=== PATIENT | male | born 1960 | race Caucasian/White ===

== ENCOUNTER 2022-02-14 07:42 | Outpatient (REF) | payer OTHER, SELFPAY ==
[2022-02-14 11:46] LABS: Alanine Aminotransferase 17 U/L (0-40); Alkaline Phosphatase 73 U/L (39-117); Anion Gap 13 (12-20); Aspartate Amino Transferase 16 U/L (5-37); Bilirubin Total 0.7 mg/dL (0.0-1.0); Blood Urea Nitrogen 20 mg/dL (9-16); Calcium 9.6 mg/dL (8.4-10.2); Carbon Dioxide 25 mmol/L (22-29); Chloride 103 mmol/L (96-108); Cholesterol 156 mg/dL; Estimated Glomerular Filt Rate > 60; Glucose Fasting 94 mg/dL (60-99); HDL Cholesterol 49 mg/dL; LDL Cholesterol Calculated 93 mg/dl; Potassium 5.1 mmol/L (3.3-5.1); Sodium 136 mmol/L (135-145); Total Protein 6.9 g/dL (6.5-8.0); Triglycerides 73 mg/dL
[2022-02-14 12:10] LABS: Prostate Specific Antigen Scr 2.93 ng/mL (<0.05-4.0); TSH reflex Free T4 2.77 uIU/mL (0.32-4.0)
[2022-02-14 12:50] LABS: Appearance Urine CLEAR; Color Urine YELLOW; Glucose Urine UA NEG (NEG); Leukocyte Esterase Urine NEG (NEG); Nitrite Urine NEG (NEG); Specific Gravity - Urine 1.015 (1.005-1.025); Urine Blood NEG (NEG); Urine Ketones NEG (NEG); Urine Protein NEG (NEG-TRACE)
== END 2022-02-14 07:43 | disposition home or self-care (01) ==
LOC: HO.WFDLDS 07:42
PROVIDERS: Visit Provider Family Medicine
DX: Z00.00 Encounter for general adult medical examination without abnormal findings (principal); Z12.5 Encounter for screening for malignant neoplasm of prostate; I10 Essential (primary) hypertension
CPT/HCPCS: 36415; 80053; 80061; 81003; 82043; 84153; 84443

== ENCOUNTER 2023-02-17 08:34 | Outpatient (REF) | payer OTHER, SELFPAY ==
[2023-02-17 11:56] LABS: Alanine Aminotransferase 17 U/L (0-40); Alkaline Phosphatase 70 U/L (39-117); Anion Gap 13 (12-20); Aspartate Amino Transferase 16 U/L (5-37); Bilirubin Total 0.9 mg/dL (0.0-1.0); Blood Urea Nitrogen 16 mg/dL (9-16); Calcium 9.7 mg/dL (8.4-10.2); Carbon Dioxide 26 mmol/L (22-29); Chloride 105 mmol/L (96-108); Cholesterol 159 mg/dL; Estimated Glomerular Filt Rate > 60; Glucose Fasting 96 mg/dL (60-99); HDL Cholesterol 50 mg/dL; LDL Cholesterol Calculated 97 mg/dl; Potassium 4.4 mmol/L (3.3-5.1); Sodium 140 mmol/L (135-145); Total Protein 6.8 g/dL (6.5-8.0); Triglycerides 63 mg/dL
[2023-02-17 12:15] LABS: TSH reflex Free T4 1.95 uIU/mL (0.32-4.0)
== END 2023-02-17 08:35 | disposition home or self-care (01) ==
LOC: HO.WFDLDS 08:34
PROVIDERS: Visit Provider Family Medicine
DX: Z00.00 Encounter for general adult medical examination without abnormal findings (principal)
CPT/HCPCS: 36415; 80053; 80061; 84443

== ENCOUNTER 2023-02-24 10:22 | Outpatient (REF) | payer OTHER, SELFPAY ==
--- NOTE | ~2023-02-24 | XR_ITS ---
EXAMINATION: XR CHEST CLINICAL INFORMATION: Cough COMPARISON: None available. TECHNIQUE: 2 views of the chest were obtained. FINDINGS: The lung volumes are low. Cardiac silhouette appears slightly enlarged. There are median sternotomy wires. Hilar and mediastinal contours are unremarkable. There are increased markings at the left lung base. It is uncertain whether this is related to low lung volumes. Small infiltrate cannot be excluded. The lungs are otherwise clear. No pleural effusion or pneumothorax. No acute bone abnormality. XR/XR chest 2V IMPRESSION: Upper normal-size cardiac silhouette. Low lung volumes. Question atelectasis or small infiltrate at the left lung base.
== END 2023-02-24 10:23 | disposition home or self-care (01) ==
LOC: HO.XRAY 10:22
PROVIDERS: PCP Family Medicine; Visit Provider Family Medicine
DX: R05.9 Cough, unspecified (principal)
CPT/HCPCS: 71046

== ENCOUNTER 2023-05-21 07:48 | Outpatient (REF) | payer OTHER, SELFPAY ==
[2023-05-21 11:46] LABS: Appearance Urine Clear; Color Urine Yellow; Glucose Urine UA Negative (Negative); Leukocyte Esterase Urine Negative (Negative); Nitrite Urine Negative (Negative); PH 6.5 (5.0-9.0); Urine Blood Negative (Negative); Urine Ketones Negative (Negative); Urine Protein Negative (Neg-Trace)
[2023-05-21 12:33] LABS: Prostate Specific Antigen Scr 2.18 ng/mL (<0.05-4.0)
== END 2023-05-21 07:49 | disposition home or self-care (01) ==
LOC: HO.WFDLDS 07:48
PROVIDERS: Visit Provider Family Medicine
DX: Z00.00 Encounter for general adult medical examination without abnormal findings (principal); Z12.5 Encounter for screening for malignant neoplasm of prostate
CPT/HCPCS: 36415; 81003; 84153

== ENCOUNTER 2023-05-27 09:17 | Outpatient (AMB) | payer OTHER, SELFPAY ==
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
[2023-05-27 09:21] VITALS: BP 124/72; PULSE 70; O2SAT 98; BMI 33.4
== END 2023-05-27 09:52 | disposition home or self-care (01) ==
PROVIDERS: PCP Family Medicine; Visit Provider Family Medicine
DX: I10 Essential (primary) hypertension (principal); R05.9 Cough, unspecified; Z12.5 Encounter for screening for malignant neoplasm of prostate
CPT/HCPCS: 99214

== ENCOUNTER 2023-10-06 09:15 | Outpatient (AMB) | payer OTHER, SELFPAY ==
--- NOTE | 2023-10-06 09:18 | MHC.PC.OV ---
Vital Signs 10/06/23 09:19 Height 6 ft Weight 249 lb 8 oz BMI 33.8 BP 122/74 Blood Pressure Location Lt brachial Position Sitting Pulse 75 Pulse Source Pulse Oximeter Pulse Oximetry (%) 100 Oxygen Delivery Method Room Air Intake Visit Reasons: f/u hypertension, see comments Intake Note: Patient is here to follow up on hypertension. Allergies No Known Allergies Allergy (Verified 10/06/23 09:21) Tobacco use date assessed: 10/06/23 Dental Screening Dental Screen Date: 10/06/23 Did you have a dental visit in the last 12 months?: Yes Did you have a dental problem in the last 6 months where you did not have access to dental care?: No Was dental information given to patient?: Patient has dentist HPI f/u hypertension, see comments HPI Details 63 y/o male presents to f/u hypertension. Blood pressure today 122/74. He is on elrpqktiqu9ehzfkmrvir 10-20mg daily. Pt reports ongoing cough - he notes he has been taking flonase which has been helping quite a bit. [facility] Medical History High blood pressure Surgical History History of thoracic surgery Family History Father Diabetes Mother Stroke High blood pressure Social History Housing: House Patient Tobacco Use Status: Never used Tobacco e-Cigarette/Vaping Use: Never Used Second Hand Smoke Exposure: No service: No Current occupational status: retired Current occupational exposures/hazards: No Cognitive needs: No Hearing needs: No Vision needs: No Questionnaire PHQ-9 Over the last 2 weeks, how often have you been bothered by any of the following problems? 1. Little interest or pleasure in doing things: not at all 2. Feeling down, depressed, or hopeless: not at all 3. Trouble falling or staying asleep, or sleeping too much: not at all 4. Feeling tired or having little energy: not at all 5. Poor appetite or overeating: not at all 6. Feeling bad about yourself - or that you are a failure or have let yourself or your family down: not at all 7. Trouble concentrating on things, such as reading the newspaper or watching television: not at all 8. Moving or speaking so slowly that other people could have noticed. Or the opposite - being so fidgety or restless that you have been moving around a lot more than usual: not at all 9. Thoughts that you would be better off or of hurting yourself in some way: not at all Total score: 0 Source: Developed by Drs. John Paul Nix, Lisa Marr, Jeff Briceno and colleagues, with an educational krista from [employer]. Thrive Questionnaire Date Thrive assessed: 10/16/22 I am a: Patient What is your living situation today?: I have a steady place to live Within the past 12 months, did the food you bought not last and you didn't have the money to get more?: Never true Within the past 12 months, did you worry whether your food would run out before you got money to buy more?: Never true Do you have trouble paying for medicines?: No Do you have trouble getting transportation to medical appointments?: No Do you have trouble paying your heating and electricity bill?: No Do you have trouble taking care of your child, family member or friend?: No Do you have trouble with day-to-day activities such as bathing, preparing meals, shopping, managing finances, etc.?: No Are you currently unemployed and looking for a job?: No Are you interested in more education?: No THRIVE Score: 0 AUDIT C Alcohol Use Questionnaire (AUDIT-C) 1. How often do you have a drink containing alcohol?: Monthly or less 2. How many drinks containing alcohol do you have on a typical day when you are drinking?: 1 or 2 3. How often do you have six or more drinks on one occasion?: Never Total Score: 1 RONALD-7 AMB Questionnaire RONALD-7 Date RONALD - 7 assessed: 10/06/23 Feeling nervous, anxious, or on edge: 0 = Not at all Not being able to stop or control worryin = Not at all Worrying too much about different things: 0 = Not at all Trouble relaxin = Not at all Being so restless that it is hard to sit still: 0 = Not at all Becoming easily annoyed or irritable: 0 = Not at all Feeling afraid as if something awful might happen: 0 = Not at all Total RONALD-7 score (0-4 normal; 5-9 mild; 10-14 moderate; 15-21 severe): 0 Source: Developed by Drs. John Paul Nix, Lisa Marr, Jeff Briceno and colleagues, with an educational krista from [employer]. Review of Systems Const Denies chills, Denies fatigue, Denies fever(s), Denies headache(s) and Denies weakness ENT Denies dizziness and Denies headache(s) Card Denies chest pain, Denies lightheadedness, Denies dyspnea and Denies other (Palpitations) Resp Denies cough, Denies dyspnea, Denies wheezing and Denies other ( shortness of breath) Musc Denies numbness and Denies tingling Neuro Denies dizziness, Denies headache(s), Denies numbness, Denies tingling, Denies paresthesias and Denies weakness Psych Denies anxiety and Denies depression Endo Denies fatigue Aller/Immun Denies wheezing Physical exam (Primary Care) Vital Signs: Last Vital Signs Pulse 75 10/06/23 09:19 BP 122/74 10/06/23 09:19 Pulse Ox 100 10/06/23 09:19 Oxygen Delivery Method Room Air 10/06/23 09:19 BMI result Body Mass Index 33.8 Tobacco/Smoking Status: Tobacco use Status Tobacco use date assessed 10/06/23 10/06/23 09:26 Patient Tobacco Use Status Never used Tobacco 10/06/23 09:18 e-Cigarette/Vaping Use Never Used 10/06/23 09:18 PHQ-9: PHQ-9 Score PHQ-9: Total score 0 10/06/23 09:26 Thrive Assessment: Date of Thrive Assessment Date Thrive assessed 10/16/22 10/06/23 09:18 Const General: no acute distress and well developed Nutritional Appearance: well nourished Orientation/consciousness: patient oriented x3 HENMT Head: Yes normocephalic and Yes atraumatic Eyes General: appearance normal, both eyes and all related structures Pupils: Equal, round and reactive pupils present EOM: EOMs intact bilaterally Resp Effort & Inspection: normal respiratory effort Auscultation: clear to auscultation bilaterally Cardio Rate: regular rate Rhythm: regular rhythm Heart sounds: S1 normal heart sound present, S2 normal heart sound present, no gallops, no murmurs and no rubs Neuro General: patient oriented x3 and gait normal Cranial nerves: Yes Equal, round and reactive pupils present Psych Affect: normal affect Assessment and Plan Assessment & Plan (1) Essential hypertension: Code(s): I10 - Essential (primary) hypertension Plan: Blood?pressure?is?well?controlled.??Goal?is?less?than?140/90 Continue?current?medications (2) Cough: Code(s): R05.9 - Cough, unspecified Plan: Patient?notes?that?cough?only?seems?to?exist?when?he?is?in?cold?dry?air. Flonase?is?helping?so?he?can?continue?this?and?try?to?avoid?environments?that?exacerbate?his?symptoms. Humidified?air?at?home. (3) Erectile dysfunction: Code(s): N52.9 - Male erectile dysfunction, unspecified Plan: Trial?sildenafil Risks/benefits?of?medication?discussed Medications: New sildenafil administer 30 minutes to 4 hours before activity 50 mg PO DAILY PRN 6 tabs 2RF sexual activity 30 days Coding Level of Care Code Est Pt Level 4 (43984) Diagnoses Essential hypertension I10 Cough R05.9 Erectile dysfunction N52.9
[2023-10-06 09:19] VITALS: BP 122/74; PULSE 75; O2SAT 100; BMI 33.8
== END 2023-10-06 09:40 | disposition home or self-care (01) ==
PROVIDERS: PCP Family Medicine; Visit Provider Family Medicine
DX: I10 Essential (primary) hypertension (principal); R05.9 Cough, unspecified; N52.9 Male erectile dysfunction, unspecified
CPT/HCPCS: 99214

== ENCOUNTER 2024-01-05 09:18 | Outpatient (AMB) | payer OTHER, SELFPAY ==
[2024-01-05 09:34] VITALS: BP 118/70; PULSE 68; O2SAT 97; BMI 33.8
--- NOTE | 2024-01-05 09:34 | A.OFFPC_ITS ---
Vital Signs 01/05/24 09:34 Height 6 ft Weight 249 lb 4 oz BMI 33.8 BP 118/70 Blood Pressure Location Lt brachial Position Sitting Pulse 68 Pulse Source Pulse Oximeter Pulse Oximetry (%) 97 Oxygen Delivery Method Room Air Intake Visit Reasons: f/u hypertension Intake Note: Patient is here to follow up on hypertension. Allergies No Known Allergies Allergy (Verified 01/05/24 09:37) Medication List - Last Reconciled 01/05/24 by Sunny Cleveland MD amlodipine-benazepril 10-20 mg 1 cap PO DAILY 90 days atorvastatin 10 mg PO DAILY 90 days fluticasone propionate 50 mcg/actuation (Flonase Allergy Relief) 1 spray intrana jazmin Q12H 30 days sildenafil 50 mg PO DAILY PRN 30 days spironolactone 25 mg PO DAILY 90 days Tobacco use date assessed: 01/05/24 Dental Screening Dental Screen Date: 01/05/24 Did you have a dental visit in the last 12 months?: Yes Did you have a dental problem in the last 6 months where you did not have access to dental care?: No Was dental information given to patient?: Patient has dentist HPI f/u hypertension HPI Details 63 y/o male presents to f/u hypertension . Blood pressure today 118/70. He is on spironolactone 25mg, amlodipine-benazepril 10-25mg daily. Trialed sildenafil and pt reports this has been helping. [facility] Medical History High blood pressure Surgical History History of thoracic surgery Family History (Updated 01/05/24 @ 09:38 by Angelic Peña CMA) Father Diabetes Mother Stroke High blood pressure Social History Housing: House Patient Tobacco Use Status: Never used Tobacco e-Cigarette/Vaping Use: Never Used Second Hand Smoke Exposure: No service: No Current occupational status: retired Current occupational exposures/hazards: No Cognitive needs: No Hearing needs: No Vision needs: No Questionnaire Thrive Questionnaire Date Thrive assessed: 10/16/22 RONALD-7 AMB Questionnaire RONALD-7 Date RONALD - 7 assessed: 10/06/23 Source: Developed by Drs. John Paul Nix, Lisa Marr, Jeff Briceno and colleagues, with an educational krista from [employer]. Review of Systems Const Denies chills, Denies fatigue, Denies fever(s), Denies headache(s) and Denies weakness ENT Denies dizziness and Denies headache(s) Card Denies chest pain, Denies lightheadedness, Denies dyspnea and Denies other (Palpitations) Resp Denies cough, Denies dyspnea, Denies wheezing and Denies other ( shortness of breath) Musc Denies numbness and Denies tingling Neuro Denies dizziness, Denies headache(s), Denies numbness, Denies tingling, Denies paresthesias and Denies weakness Psych Denies anxiety and Denies depression Endo Denies fatigue Aller/Immun Denies wheezing Physical exam (Primary Care) Vital Signs: Last Vital Signs Pulse 68 01/05/24 09:34 BP 118/70 01/05/24 09:34 Pulse Ox 97 01/05/24 09:34 Oxygen Delivery Method Room Air 01/05/24 09:34 BMI result Body Mass Index 33.8 Tobacco/Smoking Status: Tobacco use Status Tobacco use date assessed 01/05/24 01/05/24 09:41 Patient Tobacco Use Status Never used Tobacco 01/05/24 09:41 e-Cigarette/Vaping Use Never Used 01/05/24 09:41 Thrive Assessment: Date of Thrive Assessment Date Thrive assessed 10/16/22 01/05/24 09:41 Const General: no acute distress and well developed Nutritional Appearance: well nourished Orientation/consciousness: patient oriented x3 HENMT Head: Yes normocephalic and Yes atraumatic Eyes General: appearance normal, both eyes and all related structures Pupils: Equal, round and reactive pupils present EOM: EOMs intact bilaterally Resp Effort & Inspection: normal respiratory effort Auscultation: clear to auscultation bilaterally Cardio Rate: regular rate Rhythm: regular rhythm Heart sounds: S1 normal heart sound present, S2 normal heart sound present, no gallops, no murmurs and no rubs Neuro General: patient oriented x3 and gait normal Cranial nerves: Yes Equal, round and reactive pupils present Psych Affect: normal affect Assessment and Plan Assessment & Plan (1) Essential hypertension: Code(s): I10 - Essential (primary) hypertension Plan: Blood?pressure?is?well?controlled.??Goal?is?less?than?140/90 Continue?current?medications (2) Erectile dysfunction: Code(s): N52.9 - Male erectile dysfunction, unspecified Plan: Sildenafil?is?working?well. He?will?continue?this?as?needed Orders: Orders Microalbumin, Random (w Creat) Today I10 - Essential (primary) hypertension Prostate Specific Antigen Scr Today Z12.5 - Encounter for screening for malignant neoplasm of prostate UA and rflx microscopic Today Z00.00 - Encounter for general adult medical examination without abnormal findings Comprehensive [place]. Panel Fast Today Z00.00 - Encounter for general adult medical examination without abnormal findings Lipid Panel Today Z00.00 - Encounter for general adult medical examination without abnormal findings TSH reflex Free T4 Today Z00.00 - Encounter for general adult medical examination without abnormal findings Coding Level of Care Code Est Pt Level 3 (87445) Diagnoses Essential hypertension I10 Erectile dysfunction N52.9
== END 2024-01-05 10:09 | disposition home or self-care (01) ==
PROVIDERS: PCP Family Medicine; Visit Provider Family Medicine
DX: I10 Essential (primary) hypertension (principal); N52.9 Male erectile dysfunction, unspecified
CPT/HCPCS: 99213

== ENCOUNTER 2024-04-28 07:32 | Outpatient (REF) | payer OTHER, SELFPAY ==
[2024-04-28 11:43] LABS: Appearance Urine Clear; Color Urine Yellow; Glucose Urine UA Negative (Negative); Leukocyte Esterase Urine Negative (Negative); Nitrite Urine Negative (Negative); PH 6.5 (5.0-9.0); Urine Blood Negative (Negative); Urine Ketones Negative (Negative); Urine Protein Negative (Neg-Trace)
[2024-04-28 12:40] LABS: Creatinine Urine 110.05 mg/dL; Microalbumin Urine < 5.0 mg/L
[2024-04-28 12:51] LABS: Alanine Aminotransferase 16 U/L (0-40); Albumin Level 4.1 g/dL (3.5-5.0); Alkaline Phosphatase 62 U/L (39-117); Anion Gap 11 (12-20); Aspartate Amino Transferase 17 U/L (5-37); Bilirubin Total 0.7 mg/dL (0.0-1.0); Blood Urea Nitrogen 18 mg/dL (9-16); Calcium 8.8 mg/dL (8.4-10.2); Carbon Dioxide 26 mmol/L (22-29); Chloride 105 mmol/L (96-108); Cholesterol 158 mg/dL (<200); Estimated Glomerular Filt Rate > 60; Glucose Fasting 93 mg/dL (60-99); HDL Cholesterol 55 mg/dL (>40); LDL Cholesterol Calculated 92 mg/dL (<100); Potassium 4.2 mmol/L (3.3-5.1); Sodium 138 mmol/L (135-145); Triglycerides 56 mg/dL (<150)
[2024-04-28 12:59] LABS: Prostate Specific Antigen Scr 2.12 ng/mL (<0.05-4.0)
[2024-04-28 13:10] LABS: TSH reflex Free T4 1.89 uIU/mL (0.32-4.0)
== END 2024-04-28 07:33 | disposition home or self-care (01) ==
LOC: HO.WFDLDS 07:32
PROVIDERS: Visit Provider Family Medicine
DX: Z00.00 Encounter for general adult medical examination without abnormal findings (principal); Z12.5 Encounter for screening for malignant neoplasm of prostate; I10 Essential (primary) hypertension
CPT/HCPCS: 36415; 80053; 80061; 81003; 82043; 82570; 84153; 84443

== ENCOUNTER 2024-05-10 10:44 | Outpatient (AMB) | payer OTHER, SELFPAY ==
--- NOTE | 2024-05-10 10:57 | MHC.PC.OV ---
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 His primary care physician is Dr. Cleveland. We reviewed his recent lab results which are satisfactory. He had Covid-19 12 days ago and took Paxlovid. He has a mild cough, but his symptoms are otherwise better. Colonoscopy 12/26/2016 and normal per report in chart. Repeat exam after 10 years recommended. He saw beater machine operator at the beginning of the year for his skin exam. He has a mild heart murmur on exam. Patient does not recall being told about this. EKG today shows possible left atrial enlargement and incomplete right bundle branch block. Patient denies chest pain, dizziness, shortness of breath, leg swelling, syncope or fatigue. Echocardiogram ordered for further evaluation. ROS: Constitutional: No unexplained weight loss, fever, chills, fatigue or night sweats. Eyes: No vision changes, blurry vision, double vision, eye pain, eye redness, eye discharge. ENT: No hearing loss, sneezing, congestion, runny nose or sore throat. Respiratory: No shortness of breath or sputum production. Cardiovascular: No chest pain, chest pressure or chest discomfort. No palpitations or pedal edema. Gastrointestinal: No anorexia, nausea, vomiting or diarrhea. No abdominal pain or blood in stool. Genitourinary: No dysuria, hematuria, urinary frequency. Neurologic: No headache, dizziness, syncope, unilateral weakness, ataxia, numbness or tingling in the extremities. Musculoskeletal: No muscle pain, back pain, joint pain or swelling. Hematologic/Lymphatics: No bleeding or bruising. No painful lymph nodes. Skin: No rash or itching. Endocrine: No cold or heat intolerance. No polyuria or polydipsia. Psychiatric: No depression or anxiety. No SI/HI. Physical exam: Constitutional: Alert, in no distress. Head: Normocephalic. Eyes: Pupils are equal, round and reactive to light. Extraocular muscles intact. Ear, Nose and Throat: Canals clear. TMs normal. Normal nasal mucosa. No nasal discharge. No oral lesions. Neck: Supple, Full range of motion. No lymphadenopathy. No palpable thyroid masses. Respiratory: Clear to auscultation. Cardiovascular: S1 S2 regular. Systolic murmur.. No carotid bruits. Gastrointestinal: Abdomen soft, non-tender, non-distended. Normal bowel sounds. No palpable masses. Genitourinary: Pt deferred exam-per patient home exam normal. Neurologic: No focal neurological deficits. Symmetric patellar reflexes. Moves all extremities spontaneously. Sensation intact bilaterally. Skin: No rashes. Musculoskeletal: No gross deformities. Normal range of motion. Extremities: Warm and well perfused. No clubbing, cyanosis or edema. Psychiatric: Normal mood and affect [facility] Medical History High blood pressure Surgical History History of thoracic surgery Family History (Updated 01/05/24 @ 09:38 by Angelic Peña CMA) Father Diabetes Mother Stroke High blood pressure Social History Housing: House Patient Tobacco Use Status: Never used Tobacco e-Cigarette/Vaping Use: Never Used Second Hand Smoke Exposure: No service: No Current occupational status: retired Current occupational exposures/hazards: No Cognitive needs: No Hearing needs: No Vision needs: No Questionnaire PHQ-9 Over the last 2 weeks, how often have you been bothered by any of the following problems? 1. Little interest or pleasure in doing things: not at all 2. Feeling down, depressed, or hopeless: not at all 3. Trouble falling or staying asleep, or sleeping too much: not at all 4. Feeling tired or having little energy: not at all 5. Poor appetite or overeating: not at all 6. Feeling bad about yourself - or that you are a failure or have let yourself or your family down: not at all 7. Trouble concentrating on things, such as reading the newspaper or watching television: not at all 8. Moving or speaking so slowly that other people could have noticed. Or the opposite - being so fidgety or restless that you have been moving around a lot more than usual: not at all 9. Thoughts that you would be better off or of hurting yourself in some way: not at all Total score: 0 Depression Screening Interpretation: Negative Depression Screening Done: Yes 77226 - PHQ-9 Billing: Yes Source: Developed by Drs. John Paul Nix, Lisa Marr, Jeff Briceno and colleagues, with an educational krista from [employer]. Thrive Questionnaire Date Thrive assessed: 05/10/24 I am a: Patient What is your living situation today?: I have a steady place to live Within the past 12 months, did the food you bought not last and you didn't have the money to get more?: Never true Within the past 12 months, did you worry whether your food would run out before you got money to buy more?: Never true Do you have trouble paying for medicines?: No Do you have trouble getting transportation to medical appointments?: No Do you have trouble paying your heating and electricity bill?: No Do you have trouble taking care of your child, family member or friend?: No Do you have trouble with day-to-day activities such as bathing, preparing meals, shopping, managing finances, etc.?: No Are you currently unemployed and looking for a job?: No Are you interested in more education?: No Please select the resources that you would like help with: None Currently or been in a relationship where the following occur: No concerns reported THRIVE Score: 0 RONALD-7 AMB Questionnaire RONALD-7 Date RONALD - 7 assessed: 05/10/24 Feeling nervous, anxious, or on edge: 0 = Not at all Not being able to stop or control worryin = Not at all Worrying too much about different things: 0 = Not at all Trouble relaxin = Not at all Being so restless that it is hard to sit still: 0 = Not at all Becoming easily annoyed or irritable: 0 = Not at all Feeling afraid as if something awful might happen: 0 = Not at all Total RONALD-7 score (0-4 normal; 5-9 mild; 10-14 moderate; 15-21 severe): 0 Source: Developed by Drs. John Paul Nix, Lisa Marr, Jeff Briceno and colleagues, with an educational krista from [employer]. RONALD-7 Assessment Billing RONALD-7 Assessment Tool: RONALD-7 Assessment 68924 Physical exam (Primary Care) Vital Signs: Last Vital Signs Pulse 80 05/10/24 11:04 Resp 18 05/10/24 11:04 BP 110/68 05/10/24 11:04 Pulse Ox 95 05/10/24 11:04 Oxygen Delivery Method Room Air 05/10/24 11:04 BMI result Body Mass Index 33.1 Tobacco/Smoking Status: Tobacco use Status Tobacco use date assessed 01/05/24 05/10/24 10:57 Patient Tobacco Use Status Never used Tobacco 05/10/24 10:57 e-Cigarette/Vaping Use Never Used 05/10/24 10:57 PHQ-9: PHQ-9 Score PHQ-9: Total score 0 05/10/24 11:30 Depression Screening Interpretation: Negative Thrive Assessment: Date of Thrive Assessment Date Thrive assessed 05/10/24 05/10/24 11:10 Currently or been in a relationship where the following occur: No concerns reported Assessment and Plan Assessment & Plan (1) Routine physical examination: Code(s): Z00.00 - Encounter for general adult medical examination without abnormal findings Plan: Patient is seen today for a routine physical. As part of this visit we reviewed the following issues, which are considered and essential part of preventative health in this age group: - Screening for colon cancer - Blood pressure screening - Cholesterol screening - Nutritional and exercise counseling - Counseling of injury prevention including fire prevention, smoke alarms and seat belt usage - Screening for depression - Prevention of and/or testing for infectious diseases - Education about skin cancer - Recommendations about immunizations - Recommendation of an eye exam - Screening for substance abuse Follow up in 1 year for CPE. Orders: Orders CA echo transthoracic complete Today R01.1 - Cardiac murmur, unspecified AMB EKG-In Office Today I10 - Essential (primary) hypertension, R01.1 - Cardiac murmur, unspecified Coding Level of Care Code Est Pt Prev Care 40-64y(14665) Diagnoses Routine physical examination Z00.00 Additional Codes RONALD-7 Assessment Billing - RONALD-7 Assessment Tool: RONALD-7 Assessment 57080 ([id number])
[2024-05-10 11:04] VITALS: BP 110/68; PULSE 80; RESP 18; O2SAT 95; BMI 33.1
== END 2024-05-10 13:59 | disposition home or self-care (01) ==
PROVIDERS: PCP Family Medicine; Visit Provider Physician Assistant Medical
DX: Z00.00 Encounter for general adult medical examination without abnormal findings (principal)
CPT/HCPCS: 99396

== ENCOUNTER → 2024-06-08 11:04 | Outpatient (REF) | payer OTHER, SELFPAY ==
--- NOTE | 2024-06-08 11:07 | CA_ITS ---
Transthoracic Echocardiogram Patient (Last, First, Middle): Morgan Enrique, Gender: Male Date of : 1960 Age: 63 Procedure Date: 06/08/2024 Procedure Type: Transthoracic Echocardiogram Location: OP Height: 180. cm Weight: 113.4 kg BSA: 2.32 m2 Heart Rate: bpm BP: 130 / 72 mmHg Engineering Operator: AWILDA Referring MD: Lili TSE Symptoms: R01.1 - Cardiac murmur, unspecified Study Quality: Adequate ECG Rhythm: Sinus Conclusions: - The left ventricular systolic function is normal. The calculated ejection fraction is 71% by biplane method. - There is moderate calcification of the aortic valve. - There is mild mitral annular calcification. - There is mild dilatation of the ascending aorta measuring 4.30 cm. Findings Left Ventricle Normal left ventricular cavity size. There is normal left ventricular wall thickness. The left ventricular systolic function is normal. The calculated ejection fraction is 71% by biplane method. There is no evidence of regional wall motion abnormalities. Diastolic function is normal for age. Right Ventricle Normal right ventricular cavity size. There is mildly decreased right ventricular systolic function. Atria Both atria are normal in size. Aortic Valve There is moderate calcification of the aortic valve. There is no aortic valve stenosis. There is trace (trivial) aortic valve regurgitation. Mitral Valve There is mild mitral annular calcification. There is no mitral valve regurgitation. There is no mitral valve stenosis. Pulmonic Valve The pulmonic valve is likely normal. Tricuspid Valve There is trace tricuspid valve regurgitation. Tricuspid regurgitation envelope is inadequate for calculation of right ventricular systolic pressure. Great Vessels There is mild dilatation of the ascending aorta measuring 4.30 cm. Venous The inferior vena cava was not well visualized. The inferior vena cava is mildly dilated. Pericardium/Pleural There is no evidence of pericardial effusion. Prior Study Comparison No prior study available for comparison. Measurements 2D Linear Measurements IVSd: 1.00 0.6-0.9/0.6-1.0 cm LVIDd: 3.69 3.9-5.3/4.2-5.9 cm LVIDd Index: 1.59 2.4-3.2/2.2-3.1 cm/m2 LVIDs: 2.79 2.0-3.6 cm LVPWd: 0.99 0.7-1.1 cm Ao Root: 4.40 2.1-3.5 cm LA Diam: 4.00 2.7-3.8/3.0-4.0 cm LAIDs Index: 1.72 1.5-2.3 cm/m2 LV Mass: 138.13 67-162/88-224 g LV Mass Index: 59.54 43-95/49-115 g/m2 LVOT Diam: 2.40 3.0+(-)1.3 cm 2D Systolic Function EF 4C: 71.60 >55% EF 2C: 71.60 >55% EF BiP: 70.90 >55% Mitral Valve MV Pk E: 0.70 MV PK A: 0.72 MV Decel Time: 190.00 E/A: 1.00 E'Lateral: 9.36 E'Medial: 7.29 E/E' Med: 9.60 E/E' Lat: 7.50 PHT: 56.00 MVA PHT: 3.93 Decel [place]: 3.67 Aortic Valve AoV Pk Abhay: 1.85 AoV Mn Abhay: 1.24 AoV VTI: 0.35 AoV Pk Grad: 14.00 Aov Mn Grad: 7.00 DIONICIO Cont.VTI: 3.01 LVOT LVOT Pk Abhay: 1.08 LVOT Mn Abhay: 0.73 LVOT VTI: 0.23 LVOT Pk Grad: 5.00 LVOT Mn Grad: 3.00 LVOT Diam: 2.40 LVOT Area: 4.52 Diastolic Function MV Pk E: 0.70 MV Pk A: 0.72 E/A: 1.00 E'Medial: 7.29 E/E' Med: 9.60 E' Laterial: 9.36 E/E' Lat: 7.50 Right Ventricle TAPSE (mm): 17.00 TVS' Abhay: 9.00 Great Vessels Aorta Ao Root-2D: 4.40 2.0-3.7 cm Ao Asc: 4.30 2.1-3.4 cm Pulmonary Valve PV Pk Abhay: 1.45 Peak PV Grad: 8.00 Updated in Other Vendor System with Status of Final Scotty Sloan MD electronically signed on 06/09/2024 11:23:08 AM with status of Final
== END ==
LOC: HO.CARD 11:04
PROVIDERS: PCP Family Medicine; Visit Provider Physician Assistant Medical
DX: R01.1 Cardiac murmur, unspecified (principal)
CPT/HCPCS: 93306; Q9957

== ENCOUNTER → 2024-06-08 11:07 | Outpatient (BNV) | payer OTHER, SELFPAY | PROVIDERS: PCP Family Medicine; Visit Provider Internal Medicine | DX: I35.8 Other nonrheumatic aortic valve disorders (principal); I34.81 Nonrheumatic mitral (valve) annulus calcification; I77.810 Thoracic aortic ectasia | CPT/HCPCS: 93306 ==

== ENCOUNTER 2024-10-07 13:01 | Outpatient (AMB) | payer OTHER, SELFPAY ==
--- NOTE | 2024-10-07 13:09 | MHC.OFFVIS ---
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 Patient underwent an echocardiogram recently that reported aortic and mitral valve calcifications as well as ascending aortic dilatation. Patient himself does not have any cardiac history. No known coronary disease or myocardial infarction or cardiomyopathy or in fact any other cardiac issues. Within limits of his activity, he does not have any chest pain or any cardiac symptoms whatsoever. Active with no limitations. He is overweight and he states he has been this way for a long time. [facility] Medical History (Updated 10/07/24 @ 13:55 by Scotty Sloan MD) Mild dilation of ascending aorta High blood pressure Surgical History History of thoracic surgery Family History (Updated 10/07/24 @ 13:38 by Scotty Sloan MD) Father Diabetes CAD (coronary artery disease) Mother Stroke High blood pressure CAD (coronary artery disease) Social History (Updated 10/07/24 @ 13:18 by Monica Marquis) Housing: House Alcohol intake: current Alcohol intake frequency: holidays/special occasions only Patient Tobacco Use Status: Never used Tobacco e-Cigarette/Vaping Use: Never Used Second Hand Smoke Exposure: No service: No Current occupational status: retired Current occupational exposures/hazards: No Cognitive needs: No Hearing needs: No Vision needs: No Review of Systems Const Denies weakness ENT Denies dizziness Card Denies chest pain, Denies chest pain with activity, Denies syncope, Denies rapid heart rate, Denies pedal edema, Denies edema, Denies leg edema, Denies lightheadedness, Denies palpitations, Denies dyspnea, Denies dyspnea on exertion and Denies orthopnea Resp Denies cough, Denies dyspnea and Denies dyspnea on exertion GI Denies hematochezia and Denies change in stool character Musc Denies abnormal gait, Denies muscle cramps, Denies muscle weakness, Denies numbness, Denies radiating pain into limb and Denies tingling Neuro Denies abnormal gait, Denies dizziness, Denies syncope, Denies numbness, Denies tingling and Denies weakness Endo Denies palpitations Physical Exam Vital Signs: Last Vital Signs Pulse 75 10/07/24 13:10 BP 120/60 10/07/24 13:10 BMI result Body Mass Index 34.1 Const General: comfortable and no acute distress Orientation/consciousness: patient oriented x3 HEENT Other: Unremarkable Head: Yes normal to inspection Neck Neck: Yes normal visual inspection Chest Chest palpation & inspection: normal inspection of the chest Resp Auscultation: clear to auscultation bilaterally Cardio Palpation: normal PMI Heart sounds: S1 normal heart sound present, S2 normal heart sound present, no gallops, Murmur heart sound present systolic I/ and at the right sternal border and no rubs GI Palpation (GI): Soft to palpation Back/Spine/Pelvis Other: unremarkable Skin General skin exam: no rashes or lesions noted Neuro General: patient oriented x3 Extrem General: Yes normal to inspection Psych Mental Status: mental status grossly normal Office Procedures EKG Details: EKG with underlying sinus rhythm at 76/Min; sinus arrhythmia; incomplete right bundle-branch block and can not exclude old inferior infarct but could be from body habitus[place]. [id number], Complete Assessment & Plan Assessment & Plan (1) Aortic valve calcification: Code(s): I35.9 - Nonrheumatic aortic valve disorder, unspecified Category: Medical (2) Mitral annular calcification: Code(s): I34.81 - Nonrheumatic mitral (valve) annulus calcification Category: Medical (3) Mild dilation of ascending aorta: Code(s): I77.810 - Thoracic aortic ectasia Category: Medical (4) Essential hypertension: Code(s): I10 - Essential (primary) hypertension Category: Medical (5) Hyperlipidemia: Code(s): E78.5 - Hyperlipidemia, unspecified Category: Medical Plan In the recent echocardiogram, LVEF 71%. Moderate aortic valve calcification. Mild mitral annular calcification. Ascending aortic size 4.3 cm. With regard to the valvular calcification, possibility of dysfunction in the future and can be monitored periodically. With regard to the ascending aortic size, again we will need to follow on echocardiogram. Considering his risk factors including obesity, hypertension, dyslipidemia, family history as well as the above findings on echocardiogram, obtain coronary CTA for further evaluation. Plan discussed with patient and he agrees. Follow-up after the above. Orders: Orders Basic Metabolic Panel Today I25.10 - Atherosclerotic heart disease of [place] coronary artery without angina pectoris CT Cardiac Coronary Angio Today I25.10 - Atherosclerotic heart disease of [place] coronary artery without angina pectoris Coding Level of Care Code New Pt Level 4 (45206) Diagnoses Aortic valve calcification I35.9 Mitral annular calcification I34.81 Mild dilation of ascending aorta I77.810 Essential hypertension I10 Hyperlipidemia E78.5 CPT Codes EKG - CPT: 94997-[id number], Complete ([id number])
[2024-10-07 13:10] VITALS: BP 120/60; PULSE 75; BMI 34.1
== END 2024-10-07 13:36 | disposition home or self-care (01) ==
PROVIDERS: PCP Family Medicine; Visit Provider Internal Medicine
DX: I35.8 Other nonrheumatic aortic valve disorders (principal); I34.81 Nonrheumatic mitral (valve) annulus calcification; I77.810 Thoracic aortic ectasia; I10 Essential (primary) hypertension; E78.5 Hyperlipidemia, unspecified; R94.31 Abnormal electrocardiogram [ECG] [EKG]
CPT/HCPCS: 93010; 99214

== ENCOUNTER → 2024-10-07 13:01 | Outpatient (BNVA) | payer OTHER, SELFPAY | PROVIDERS: PCP Family Medicine; Visit Provider Internal Medicine | DX: I35.9 Nonrheumatic aortic valve disorder, unspecified (principal); I34.81 Nonrheumatic mitral (valve) annulus calcification; I77.810 Thoracic aortic ectasia; I10 Essential (primary) hypertension; E78.5 Hyperlipidemia, unspecified; I25.10 Atherosclerotic heart disease of native coronary artery without angina pectoris | CPT/HCPCS: 93005; 99212 ==

== ENCOUNTER → 2024-10-22 09:48 | Outpatient (REF) | payer OTHER, SELFPAY | LOC: HO.CARD 09:48 | PROVIDERS: PCP Family Medicine; Visit Provider Internal Medicine | DX: R07.2 Precordial pain (principal) ==

== ENCOUNTER → 2024-10-22 09:51 | Outpatient (BNV) | payer OTHER, SELFPAY | PROVIDERS: PCP Family Medicine | DX: R06.02 Shortness of breath (principal); I49.1 Atrial premature depolarization; I49.3 Ventricular premature depolarization | CPT/HCPCS: 93016; 93018 ==

== ENCOUNTER 2025-01-04 07:42 | Outpatient (REF) | payer OTHER, SELFPAY ==
[2025-01-04 11:49] LABS: Anion Gap 14 (12-20); Blood Urea Nitrogen 21 mg/dL (9-16); Calcium 9.6 mg/dL (8.4-10.2); Carbon Dioxide 27 mmol/L (22-29); Chloride 104 mmol/L (96-108); Estimated Glomerular Filt Rate > 60; Glucose Random 84 mg/dL (60-115); Potassium 4.7 mmol/L (3.3-5.1); Sodium 140 mmol/L (135-145)
== END 2025-01-04 07:43 | disposition home or self-care (01) ==
LOC: HO.WFDLDS 07:42
PROVIDERS: Visit Provider Internal Medicine
DX: I25.10 Atherosclerotic heart disease of native coronary artery without angina pectoris (principal)
CPT/HCPCS: 36415; 80048

== ENCOUNTER 2025-01-10 12:53 | Outpatient (AMB) | payer OTHER, SELFPAY ==
--- NOTE | 2025-01-10 13:33 | A.OFFVIS_ITS ---
Vital Signs 01/10/25 13:34 Height 6 ft Weight 249 lb 1.957 oz BMI 33.8 BP 118/60 Blood Pressure Location Lt brachial Position Sitting Pulse 75 Pulse Source Pulse Oximeter Intake Visit Reasons: 3 m follow up/ CTA Allergies No Known Allergies Allergy (Verified 05/10/24 11:03) Medication List - Last Reconciled 01/10/25 by Scotty Sloan MD amlodipine-benazepril 10-20 mg 1 cap PO DAILY 90 days atorvastatin 10 mg PO DAILY 90 days fluticasone propionate 50 mcg/actuation (Flonase Allergy Relief) 1 spray intranasal Q12H 30 days sildenafil 50 mg PO DAILY PRN 30 days spironolactone 25 mg PO DAILY 90 days HPI Comments Details: Morgan returns for follow-up. In the past, he was seen regarding an abnormal echocardiogram. That had reported aortic and mitral valve calcifications as well as ascending aortic dilatation. Patient himself does not have any cardiac history. No known coronary disease or myocardial infarction or cardiomyopathy or in fact any other cardiac issues. Within limits of his activity, he does not have any chest pain or any cardiac symptoms whatsoever. Active with no limitations. He is overweight and he states he has been this way for a long time. We had ordered a coronary CTA but there was not approved. He rather underwent exercise stress test. Otherwise, no new concerns. Exercise The patient engages in light exercise through daily activities such as working outside in the yard and walking the dog twice daily. There are no identified exercise-induced symptoms, and the patient's tolerance for exercise appears adequate, suggesting beneficial cardiovascular activity. [facility] Medical History (Updated 10/07/24 @ 13:55 by Scotty Slona MD) Mild dilation of ascending aorta High blood pressure Surgical History History of thoracic surgery Family History (Updated 10/07/24 @ 13:38 by Scotty Sloan MD) Father Diabetes CAD (coronary artery disease) Mother Stroke High blood pressure CAD (coronary artery disease) Social History (Updated 10/07/24 @ 13:18 by Monica Marquis) Housing: House Alcohol intake: current Alcohol intake frequency: holidays/special occasions only Patient Tobacco Use Status: Never used Tobacco e-Cigarette/Vaping Use: Never Used Second Hand Smoke Exposure: No service: No Current occupational status: retired Current occupational exposures/hazards: No Cognitive needs: No Hearing needs: No Vision needs: No Review of Systems Const Denies weakness ENT Denies dizziness Card Denies chest pain, Denies chest pain with activity, Denies syncope, Denies rapid heart rate, Denies pedal edema, Denies edema, Denies leg edema, Denies lightheadedness, Denies palpitations, Denies dyspnea, Denies dyspnea on exertion and Denies orthopnea Resp Denies cough, Denies dyspnea and Denies dyspnea on exertion GI Denies hematochezia and Denies change in stool character Musc Denies abnormal gait, Denies muscle cramps, Denies muscle weakness, Denies n umbness, Denies radiating pain into limb and Denies tingling Neuro Denies abnormal gait, Denies dizziness, Denies syncope, Denies numbness, Denies tingling and Denies weakness Endo Denies palpitations Physical Exam Vital Signs: Last Vital Signs Pulse 75 01/10/25 13:34 BP 118/60 01/10/25 13:34 BMI result Body Mass Index 33.8 Const General: comfortable and no acute distress Orientation/consciousness: patient oriented x3 HEENT Other: Unremarkable Head: Yes normal to inspection Neck Neck: Yes normal visual inspection Chest Chest palpation & inspection: normal inspection of the chest Resp Auscultation: clear to auscultation bilaterally Cardio Palpation: normal PMI Heart sounds: S1 normal heart sound present, S2 normal heart sound present, no gallops, Murmur heart sound present systolic II/ and at the right sternal border and no rubs GI Palpation (GI): Soft to palpation Back/Spine/Pelvis Other: unremarkable Skin General skin exam: no rashes or lesions noted Neuro General: patient oriented x3 Extrem General: Yes normal to inspection Psych Mental Status: mental status grossly normal Assessment & Plan Assessment & Plan (1) Aortic valve calcification: Code(s): I35.9 - Nonrheumatic aortic valve disorder, unspecified Category: Medical (2) Mitral annular calcification: Code(s): I34.81 - Nonrheumatic mitral (valve) annulus calcification Category: Medical (3) Mild dilation of ascending aorta: Code(s): I77.810 - Thoracic aortic ectasia Category: Medical (4) Essential hypertension: Code(s): I10 - Essential (primary) hypertension Category: Medical (5) Hyperlipidemia: Code(s): E78.5 - Hyperlipidemia, unspecified Category: Medical Plan In the recent echocardiogram, LVEF 71%. Moderate aortic valve calcification. Mild mitral annular calcification. Ascending aortic size 4.3 cm. In the stress test, he was able to do 7 METS on Gerry protocol and reached 91% of max predicted heart rate. No chest discomfort. Frequent PACs/PVCs. No EKG evidence of ischemia. With regard to the valvular calcification, we will monitor on echocardiogram. With regard to the ascending aortic size, again we will need to follow on echocardiogram. Otherwise, mainly risk factor modification. Weight loss would be greatly beneficial. Optimal management of hypertension, dyslipidemia. We also discussed about sleep study but patient would like to hold off. We will follow up in 6 months with an echocardiogram. Discussion Notes I discussed the diagnostic findings and ongoing management strategy at length with the patient. For the valvular calcification and aortic enlargement, we agreed on the necessity of 6-monthly echocardiogram to gauge changes over time. Our discussion included the implications and natural course of these findings, acknowledging that they are not expected to worsen rapidly, hence the preference for a conservative monitoring trajectory. Regarding snoring and potential sleep apnea, I introduced the option of a home sleep study, as it may provide insights significant for cardiovascular risk management. I reiterated how lifestyle factors, particularly weight oversight, could play a pivotal role in ameliorating heart health in conjunction with these monitoring strategies. We concluded with a plan for a follow-up consult post-echocardiogram to review these findings and modify the approach as required. Patient was informed and verbally consented to the use of an ambient scribe for clinic note documentation during this visit. Orders: Orders CA echo transthoracic complete 6 Months I77.810 - Thoracic aortic ectasia Patient Instructions: - Schedule an echocardiogram in six months. - Consider taking a home sleep study if snoring persists or worsens. - Focus on maintaining an active lifestyle; continue regular exercise like yard work and walking the dog. - Work on weight management as part of heart health maintenance. - Return for evaluation after the next ultrasound or if new symptoms occur. - If you have questions or concerns, do not hesitate to reach out. Coding Level of Care Code Est Pt Level 4 (36490) Complex EM visit Add On G2211 Diagnoses Aortic valve calcification I35.9 Mitral annular calcification I34.81 Mild dilation of ascending aorta I77.810 Essential hypertension I10 Hyperlipidemia E78.5
[2025-01-10 13:34] VITALS: BP 118/60; PULSE 75; BMI 33.8
== END 2025-01-10 13:56 | disposition home or self-care (01) ==
LOC: HO.HCS 12:54
PROVIDERS: PCP Family Medicine; Visit Provider Internal Medicine
DX: I35.9 Nonrheumatic aortic valve disorder, unspecified (principal); I34.81 Nonrheumatic mitral (valve) annulus calcification; I77.810 Thoracic aortic ectasia; I10 Essential (primary) hypertension; E78.5 Hyperlipidemia, unspecified
CPT/HCPCS: 99214; G2211

== ENCOUNTER → 2025-01-10 12:53 | Outpatient (BNVA) | payer OTHER, SELFPAY | PROVIDERS: PCP Family Medicine; Visit Provider Internal Medicine | DX: I35.9 Nonrheumatic aortic valve disorder, unspecified (principal); I34.81 Nonrheumatic mitral (valve) annulus calcification; I77.810 Thoracic aortic ectasia; I10 Essential (primary) hypertension; E78.5 Hyperlipidemia, unspecified | CPT/HCPCS: 99212 ==

== ENCOUNTER 2025-05-11 06:37 | Outpatient (REF) | payer OTHER, SELFPAY ==
--- OUTSIDE RECORDS SUMMARY | 2020-08-07 11:10 | XMS_ITS | Continuity of Care Document ---
Author Organization [facility] [facility] Address [address] [place] [address] Phone Care Team Providers Care Audio Visual Manager Name Role Phone Toribio Raya MD Unavailable Unavailable Allergies, Adverse Reactions, Alerts Substance Reaction Status Criticality No Known Allergies Active No Inform ation Medications Medication Instructions Dosage Effective Dates (start - stop) Status Comments erythromycin 5 mg/gram (0.5 %) eye ointment apply (1CM) a small amount onto incision sites [facility] - Active atorvastatin 20 mg tablet [...] Diagnoses Date Provider Providers Copied on Encounter [facility], [address] [place] [address], [id number], [place] tel:[phone] DON Hackett post op examination (chief complaint) Basal cell carcinoma of skin of right lower eyelid, including canthusEctropio n of lt lower eyelidEctropion of right lower eyelid 0 Dorota Rooney. [address] [facility], [place], [place], [id number] , [place]. tel:[phone] Specialist : Elena Card MD, [facility] [address], [place], [address]. tel:[phone] erring Provider: [facility]apiangeline [facility] [address] [place], [place] [address], [place], [address]. tel:[phone] [facility], [address] [place] [address], [id number], [place] tel:[phone] [facility] Basal cell carcinoma skin/ right lower eyelid, inc canthus 0 Dorota Rooney. [address], [place], [place], [id number] , [place]. tel:[phone] Referring Provider: Axelpapiangeline Tahmina [facility] [address], [place], [address]. tel:[phone] [facility], [address] [place] [address], [id number], [place] tel:[phone] DON Hackett post op examination (chief complaint) Unspecified ectropion of right lower eyelidUnspecifi ed ectropion of left lower eyelidBasal cell carcinoma skin/ right lower eyelid, inc canthus Oct-0 0 Dorota Rooney. [address] , [place], [place], [id number] , [place]. tel:[phone] Specialist : Elena Card MD, [facility] [address] [facility], [place], [address]. tel:[phone] cialist: Elena Card MD, [facility] [address] [facility], [place], [address]. tel:[phone] erring Provider: Shira Martel [place] [address], [place], [address]. tel:[phone] [facility], [address] [place] [address], [id number], [place] tel:[phone] DON Hackett Unspecified ectropion of right lower eyelidUnspecifi ed ectropion of left lower eyelidOther benign neoplasm of skin of right lower eyelid, including canthus May-2 0 Dorota Rooney. [address] [facility], [place], [place], [id number] , [place]. tel:[phone] Referring Provider: Shira Martel [place] [address], [place], [address]. tel:[phone] [facility], [address] [place] [address], [id number], [place] tel:[phone] DON Hackett lid evaluation (chief complaint) Unspecified ectropion of left lower eyelidUnspecifi ed ectropion of right lower eyelid Apr- 0 Dorota Rooney. [address] , [place], [place], [id number] , [place]. tel:[phone] Referring Provider: [place] [address], [place], [address]. tel:[phone] [facility], [address] [place] [address], [id number], [place] tel:[phone] DON Hackett No Information 0 Lukas Rooney. [address] [facility], [place], [id number] , [place]. tel:[phone] [facility], [address] [place] [address], [id number], [place] tel:[phone] DON Hackett post op examination (chief complaint) Presence of intraocular lens 9 Dali De Los Santos. [address] [place] [address], [id number] , [place]. tel:[phone] Referring Provider: [place] [address], [place], [address]. tel:[phone] [facility], [address] [place] [address], [id number], [place] tel:[phone] DON Hackett post op examination (chief complaint) Pseudophakia 9 Dali De Los Santos. [address] [place] [address], [id number] , [place]. [phone] Referring Provider: [place] [address], [place], [address]. tel:[phone] [facility], [address] [place] [address], [id number], [place] tel:[phone] [facility] Age-related nuclear cataract, left eye Jun- 9 Dali De Los Santos. [address] [place] [address], [id number] , [place]. tel:[phone] Referring Provider: [place] [address], [place], [address]. tel:[phone] [facility], [address] [place] [address], [id number], [place] tel:[phone] [facility] [address] post op examination (chief complaint) Pseudophakia Oct-0 8-201 9 Dali De Los Santos. [address] [facility], [place], [place], [id number] , [place]. tel:[phone] Referring Provider: Shira Martel [place] [address], [place], [address]. tel:[phone] [facility], [address] [place] [address], [id number], [place] tel:[phone] DON Hackett post op examination (chief complaint) Pseudophakia Oct-0 1-201 9 Dali De Los Santos. [address] [place], [place], [id number] , [place]. [phone] Referring Provider: [place] [address], [place], [address]. tel:[phone] [facility], [address] [place] [address], [id number], [place] tel:[phone] DON Hackett post op examination (chief complaint) PseudophakiaAge -related nuclear cataract, left eye Sep-2 4-201 9 Dali De Los Santos. [address] [place], [place], [id number] , [place]. tel:[phone] Referring Provider: Shira Martel [facility] [address], [place], [address]. tel:[phone] [facility], [address] [place] [address], [id number], [place] tel:[phone] [facility] Age-related nuclear cataract, right eye Sep-2 3-201 9 Dali De Los Santos. [address] [place], [place], [id number] , [place]. tel:[phone] Referring Provider: Shira LAUREN, [facility] [address], [place], [address]. tel:[phone] [facility], [address] [place] [address], [id number], [place] tel:[phone] DON Hackett repeat IOL/lens discussion (chief complaint) Age-related nuclear cataract, bilateral May- 9 Dali De Los Santos. [address] [place], [id number] , [place]. [phone] Referring Provider: Shira LAUREN, [facility] [place] [address], [place], [address]. tel:[phone] [facility], [address] [place] [address], [id number], [place] tel:[phone] DON Hackett repeat IOL/lens discussion (chief complaint) Age-related nuclear cataract, bilateral Sep-0 9 Dali Morrisi. [address] [place], [place], [id number] , [place]. tel:[phone] Referring Provider: Shira LAUREN, [place] [address], [place], [address]. tel:[phone] [facility], [address] [place] [address], [id number], [place] tel:[phone] DON Hackett cataract evaluation (chief complaint) Age-related nuclear cataract, bilateralAge-re lated nuclear cataract, left eyeAge-related nuclear cataract, right eyeGlaucoma Suspect, both eyes, low risk Apr- 9 Dali De Los Santos. [address] [place], [place], [id number] , [place]. tel:[phone] Referring Provider: Shira LAUREN, [facility] [address], [place], [address]. tel:[phone] [facility], [address] [place] [address], [place], [place], [id number], tel:[phone] DON Hackett No Information 9 Dali De Los Santos. [address] [place] [address], [place], [id number] , . tel:[phone] Referring [facility]: [facility] [address], [place], [address]. tel:[phone] Family History Family Member Type Diagnosis Age At Onset No Information Payers Payer name Insurance type Covered alliance party ID Randy mann(s) Jaytmaryse CI [id number] Social History Type Description Quantity Date Captured [...]
[2025-05-11 07:49] LABS: Hemoglobin A1C 153.5715 umol/L; Total Hemoglobin (HGBA1C) 3867.5279 umol/L
[2025-05-11 08:36] LABS: Alanine Aminotransferase 22 U/L (0-40); Albumin Level 4.5 g/dL (3.5-5.0); Alkaline Phosphatase 66 U/L (39-117); Anion Gap 13 (12-20); Aspartate Amino Transferase 27 U/L (5-37); Blood Urea Nitrogen 17 mg/dL (9-16); Calcium 9.7 mg/dL (8.4-10.2); Carbon Dioxide 26 mmol/L (22-29); Chloride 102 mmol/L (96-108); Cholesterol 168 mg/dL (<200); Estimated Glomerular Filt Rate > 60; HDL Cholesterol 54 mg/dL (>40); Potassium 5.2 mmol/L (3.3-5.1); Sodium 136 mmol/L (135-145); Total Protein 7.2 g/dL (6.5-8.0); Triglycerides 83 mg/dL (<150)
[2025-05-11 08:54] LABS: Folate 9.5 ng/mL (> or = 4.0); Vitamin B12 639 pg/mL (200-900)
== END 2025-05-11 06:38 | disposition home or self-care (01) ==
LOC: HO.LAB 06:37
PROVIDERS: PCP Nurse Practitioner Family; Visit Provider Nurse Practitioner Family
DX: Z00.00 Encounter for general adult medical examination without abnormal findings (principal)
CPT/HCPCS: 36415; 80053; 80061; 82043; 82306; 82570; 82607; 82746; 83036; 84153; 84443

== ENCOUNTER 2025-05-12 08:40 | Outpatient (AMB) | payer OTHER, SELFPAY ==
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
--- NOTE | 2025-05-12 08:50 | MHC.PC.OV ---
Vital Signs 05/12/25 08:53 Height 6 ft Weight 248 lb BMI 33.6 BP 125/66 Blood Pressure Location Lt brachial Position Sitting Respiration 16 Pulse 76 Pulse Source Pulse Oximeter Temp 98.2 F Temp Source Oral Pulse Oximetry (%) 97 Oxygen Delivery Method Room Air Intake Visit Reasons: CPE with F/U labs and health Intake Note: patient here for CPE and lab review Detective Captain Required: No Allergies No Known Allergies Allergy (Verified 05/12/25 08:52) Medication List - Last Reconciled 05/12/25 by Sunny Cleveland MD amlodipine-benazepril 10-20 mg 1 cap PO DAILY 90 days atorvastatin 10 mg PO DAILY 90 days fluticasone propionate 50 mcg/actuation (Flonase Allergy Relief) 1 spray intranasal Q12H 30 days sildenafil 50 mg PO DAILY PRN 30 days spironolactone 25 mg PO DAILY 90 days Tobacco use date assessed: 05/12/25 Dental Screening Dental Screen Date: 05/12/25 Did you have a dental visit in the last 12 months?: Yes Did you have a dental problem in the last 6 months where you did not have access to dental care?: No Was dental information given to patient?: Patient has dentist HPI CPE with F/U labs and health HPI Details Patient presents for complete physical exam Reviewed labs with patient: Mild elevation in his potassium-likely secondary to spironolactone. He is not eating lot of high potassium foods. A1c 5.8% is in early pre diabetes range. Cholesterol is well controlled on atorvastatin PSA is within range Left shoulder pain and discomfort with abduction greater than 90 degrees as well as internal rotation. Left SI joint pain, worse with standing long periods. Left ankle pain with some joint swelling which resolves when he is off his foot. Also uses a compression bandage which helps. Followed by cardiology for aortic valve calcification and aortic aneurysm Followed with echocardiograms and his stress test was negative for CAD Blood pressure today 125/66 No other complaints. [facility] Medical History Mild dilation of ascending aorta High blood pressure Surgical History History of thoracic surgery Family History Father Diabetes CAD (coronary artery disease) Mother Stroke High blood pressure CAD (coronary artery disease) Social History Housing: House Alcohol intake: current Alcohol intake frequency: holidays/special occasions only Patient Tobacco Use Status: Never used Tobacco e-Cigarette/Vaping Use: Never Used Second Hand Smoke Exposure: No service: No Current occupational status: retired Current occupational exposures/hazards: No Cognitive needs: No Hearing needs: No Vision needs: No Questionnaire PHQ-9 Over the last 2 weeks, how often have you been bothered by any of the following problems? 1. Little interest or pleasure in doing things: not at all 2. Feeling down, depressed, or hopeless: not at all 3. Trouble falling or staying asleep, or sleeping too much: not at all 4. Feeling tired or having little energy: not at all 5. Poor appetite or overeating: not at all 6. Feeling bad about yourself - or that you are a failure or have let yourself or your family down: not at all 7. Trouble concentrating on things, such as reading the newspaper or watching television: not at all 8. Moving or speaking so slowly that other people could have noticed. Or the opposite - being so fidgety or restless that you have been moving around a lot more than usual: not at all 9. Thoughts that you would be better off or of hurting yourself in some way: not at all Total score: 0 Depression Screening Interpretation: Negative Depression Screening Done: Yes 52121 - PHQ-9 Billing: Yes Source: Developed by Drs. John Paul Nix, Lisa Marr, Jeff Briceno and colleagues, with an educational krista from [employer]. Thrive Questionnaire Date Thrive assessed: 05/12/25 I am a: Patient What is your living situation today?: I have a steady place to live Within the past 12 months, did the food you bought not last and you didn't have the money to get more?: Never true Within the past 12 months, did you worry whether your food would run out before you got money to buy more?: Never true Do you have trouble paying for medicines?: No Do you have trouble getting transportation to medical appointments?: No Do you have trouble paying your heating and electricity bill?: No Do you have trouble taking care of your child, family member or friend?: No Do you have trouble with day-to-day activities such as bathing, preparing meals, shopping, managing finances, etc.?: No Are you currently unemployed and looking for a job?: No Are you interested in more education?: No Please select the resources that you would like help with: None Currently or been in a relationship where the following occur: No concerns reported THRIVE Score: 0 AUDIT C Alcohol Use Questionnaire (AUDIT-C) 1. How often do you have a drink containing alcohol?: 2-4 times a month 2. How many drinks containing alcohol do you have on a typical day when you are drinking?: 1 or 2 3. How often do you have six or more drinks on one occasion?: Never Total Score: 2 Score Reviewed/Action Taken: Yes RONALD-7 AMB Questionnaire RONALD-7 Date RONALD - 7 assessed: 05/12/25 Feeling nervous, anxious, or on edge: 0 = Not at all Not being able to stop or control worryin = Not at all Worrying too much about different things: 0 = Not at all Trouble relaxin = Not at all Being so restless that it is hard to sit still: 0 = Not at all Becoming easily annoyed or irritable: 0 = Not at all Feeling afraid as if something awful might happen: 0 = Not at all Total RONALD-7 score (0-4 normal; 5-9 mild; 10-14 moderate; 15-21 severe): 0 Source: Developed by Drs. John Paul Nix, Lisa Marr, Jeff Briceno and colleagues, with an educational krista from [employer]. RONALD-7 Assessment Billing RONALD-7 Assessment Tool: RONALD-7 Assessment 97001 Review of Systems Const Denies chills, Denies fatigue, Denies fever(s), Denies headache(s) and Denies weakness Eyes Denies change in vision ENT Denies dizziness, Denies headache(s), Denies hearing loss, Denies nasal congestion, Denies sinus pain, Denies sinus pressure and Denies sore throat Card Denies chest pain, Denies lightheadedness, Denies dyspnea and Denies other (palpitations) Resp Denies cough, Denies dyspnea and Denies wheezing GI Denies abdominal pain, Denies melena, Denies hematochezia, Denies change in bowel habits, Denies dyspepsia and Denies nausea Denies hematuria and Denies dysuria Musc Details: See HPI Denies abnormal gait, Denies myalgias, Reports arthralgias, Denies numbness and Denies tingling Skin/Breast Denies rash, Denies unusual bruising and Denies wounds Neuro Denies abnormal gait, Denies dizziness, Denies headache(s), Denies memory loss, Denies numbness, Denies Sensory deficit (Neuro), Denies tingling and Denies weakness Psych Denies anxiety, Denies depression and Denies memory loss Endo Denies cold intolerance, Denies fatigue, Denies heat intolerance, Denies polydipsia and Denies polyuria Inder/Lymph Denies easy bleeding and Denies easy bruising Aller/Immun Denies wheezing Physical exam (Primary Care) Vital Signs: Last Vital Signs Temp 98.2 F 05/12/25 08:53 Pulse 76 05/12/25 08:53 Resp 16 05/12/25 08:53 BP 125/66 05/12/25 08:53 Pulse Ox 97 05/12/25 08:53 Oxygen Delivery Method Room Air 05/12/25 08:53 BMI result Body Mass Index 33.6 Tobacco/Smoking Status: Tobacco use Status Tobacco use date assessed 05/12/25 05/12/25 08:57 Patient Tobacco Use Status Never used Tobacco 05/12/25 08:57 e-Cigarette/Vaping Use Never Used 05/12/25 08:57 PHQ-9: PHQ-9 Score PHQ-9: Total score 0 05/12/25 08:57 Depression Screening Interpretation: Negative Thrive Assessment: Date of Thrive Assessment Date Thrive assessed 05/12/25 05/12/25 08:57 Currently or been in a relationship where the following occur: No concerns reported Const General: no acute distress, well developed, alert and awake Nutritional Appearance: well nourished Orientation/consciousness: patient oriented x3 HENMT Head: Yes normocephalic and Yes atraumatic Ears: hearing grossly normal bilaterally and TM's normal bilaterally General nose exam: Normal external nose present and Normal nares present Mouth: Normal oral and palatal mucosa present and moist mucous membranes Teeth and gingiva: dentition normal Throat: Yes posterior oropharynx normal Eyes Pupils: Equal, round and reactive pupils present and Pupil accommodation reflex normal EOM: EOMs intact bilaterally Neck Neck: Yes normal visual inspection, Yes no lymphadenopathy and Yes trachea midline Thyroid: Thyroid normal Carotids: no bruits Lymphatic: no lymphadenopathy noted Chest Chest palpation & inspection: normal inspection of the chest Resp Effort & Inspection: normal respiratory effort Auscultation: clear to auscultation bilaterally Cardio Rate: regular rate Rhythm: regular rhythm Heart sounds: S1 normal heart sound present, S2 normal heart sound present, no gallops, Murmur heart sound present (Faint 2/6 systolic murmur) and no rubs Bruits: no abdominal aortic bruits and no carotid bruits GI Palpation (GI): No Abdominal aortic bruit present, Soft to palpation, nontender, No hepatosplenomegaly present and No Rebound tenderness present Auscultation: normal bowel sounds General: Yes no CVA tenderness Back/Spine/Pelvis Other: Pain at left SI joint with palpation Back: no CVA tenderness Cervical Spine: cervical ROM normal and No Cervical spine tenderness Thoracic/Lumbar Spine: thoraco-lumbar ROM normal, No pain with thoraco-lumbar ROM, No thoracic spinal tenderness and No lumbar spinal tenderness Skin Lesions: no lesions Rashes: no rashes Trauma: no lacerations or abrasions Wounds: no wounds Nails: normal Neuro General: patient oriented x3, gait normal and CN's II-XI intact bilaterally Cranial nerves: Yes Equal, round and reactive pupils present Cognition (Neuro): normal cognition Gait exam (Neuro): Normal gait present Motor exam (neuro): 5/5 motor strength present throughout Sensory Exam: No Sensory deficit (Neuro) Deep tendon reflexes (DTR's): Right patellar reflex intensity grade: 2+ and Left patellar reflex intensity grade: 2+ Extrem Other: Left shoulder pain with abduction greater than 90 degrees and some decreased range of motion. Discomfort with internal rotation. Neer's test negative Left ankle tenderness to palpation. No appreciated swelling today. No erythema or warmth. General: Yes normal to inspection and No edema Psych Appearance: grossly normal Affect: normal affect Attitude: cooperative Thought process: Normal thought process present Coding Level of Care Code Est Pt Level 4 (64699) Est Pt Prev Care 40-64y(21145) Diagnoses Adult general medical exam Z00.00 Hyperlipidemia E78.5 Mild dilation of ascending aorta I77.810 Essential hypertension I10 Aortic valve calcification I35.9 Left ankle pain M25.572 Pain of left sacroiliac joint M53.3 Left shoulder pain M25.512 Pre-diabetes R73.03 Screening for prostate cancer Z12.5 Screening for colon cancer Z12.11 Additional Codes RONALD-7 Assessment Billing - RONALD-7 Assessment Tool: RONALD-7 Assessment 19865 ([id number]) PHQ-9 - 81536 - PHQ-9 Billing: Yes ([id number]) Assessment & Plan Assessment & Plan (1) Adult general medical exam: Code(s): Z00.00 - Encounter for general adult medical examination without abnormal findings Category: Medical Plan: 64-year-old male presents for complete physical exam Encouraged healthy diet with active lifestyle and plenty of exercise (2) Hyperlipidemia: Code(s): E78.5 - Hyperlipidemia, unspecified Category: Medical Plan: Lipids well controlled on atorvastatin Continue current medication (3) Mild dilation of ascending aorta: Code(s): I77.810 - Thoracic aortic ectasia Category: Medical Plan: Maintain good blood pressure control Well controlled today Follow-up with Cardiology as recommended (4) Essential hypertension: Code(s): I10 - Essential (primary) hypertension Category: Medical Plan: Blood pressure is controlled. Goal is less than 130/80 Continue current medications (5) Aortic valve calcification: Code(s): I35.9 - Nonrheumatic aortic valve disorder, unspecified Category: Medical Plan: Maintain good blood pressure control. Controlled today. Follow-up with Cardiology as recommended (6) Left ankle pain: Code(s): M25.572 - Pain in left ankle and joints of left foot Category: Medical Plan: Longstanding Left ankle pain Arthritis verses tendinitis Check x-ray NSAIDs Ice/heat (7) Pain of left sacroiliac joint: Code(s): M53.3 - Sacrococcygeal disorders, not elsewhere classified Category: Medical Plan: NSAIDs Try naproxen b.i.d. Ice/heat (8) Left shoulder pain: Code(s): M25.512 - Pain in left shoulder Category: Medical Plan: Likely rotator cuff strain Start physical therapy NSAIDs Ice/heat (9) Pre-diabetes: Code(s): R73.03 - Prediabetes Category: Medical Plan: A1c 5.8%. Pre diabetes range. Encouraged diet lower in sugars and starches Encouraged weight loss and exercise as tolerated Will continue monitor (10) Screening for prostate cancer: Code(s): Z12.5 - Encounter for screening for malignant neoplasm of prostate Category: Medical Plan: PSA was within normal range Will continue annual screening (11) Screening for colon cancer: Code(s): Z12.11 - Encounter for screening for malignant neoplasm of colon Category: Medical Plan: Patient had colonoscopy 7 years ago was told to follow-up in 10 years. Up-to-date Orders: Orders XR ankle LT min 3V Today M25.572 - Pain in left ankle and joints of left foot Hemoglobin A1c Today R73.01 - Impaired fasting glucose PT Evaluation and Treatment Today M25.512 - Pain in left shoulder
[2025-05-12 08:53] VITALS: BP 125/66; PULSE 76; RESP 16; TEMP 36.8; O2SAT 97; BMI 33.6
== END 2025-05-12 09:56 | disposition home or self-care (01) ==
LOC: HO.HMCFM 08:41
PROVIDERS: PCP Family Medicine; Visit Provider Family Medicine
DX: Z00.00 Encounter for general adult medical examination without abnormal findings (principal); M25.572 Pain in left ankle and joints of left foot; M25.512 Pain in left shoulder; E78.5 Hyperlipidemia, unspecified; I77.810 Thoracic aortic ectasia; I10 Essential (primary) hypertension; I35.9 Nonrheumatic aortic valve disorder, unspecified; M53.3 Sacrococcygeal disorders, not elsewhere classified; R73.03 Prediabetes; Z12.5 Encounter for screening for malignant neoplasm of prostate; Z12.11 Encounter for screening for malignant neoplasm of colon

== ENCOUNTER → 2025-05-12 08:40 | Outpatient (BNVA) | payer OTHER, SELFPAY | PROVIDERS: PCP Family Medicine; Visit Provider Family Medicine | DX: Z00.00 Encounter for general adult medical examination without abnormal findings (principal); I10 Essential (primary) hypertension; E78.5 Hyperlipidemia, unspecified; R73.03 Prediabetes; I77.810 Thoracic aortic ectasia; I35.9 Nonrheumatic aortic valve disorder, unspecified; M25.572 Pain in left ankle and joints of left foot; M53.3 Sacrococcygeal disorders, not elsewhere classified; M25.512 Pain in left shoulder; R73.01 Impaired fasting glucose | CPT/HCPCS: 96127; 99212; 99396 ==

== ENCOUNTER 2025-05-25 10:41 | Outpatient (REF) | payer OTHER, SELFPAY ==
--- NOTE | ~2025-05-25 | XR_ITS ---
EXAMINATION: XR ANKLE, LEFT CLINICAL INFORMATION: M25.572 - Pain in left ankle and joints of left foot COMPARISON: None available. TECHNIQUE: AP, lateral, and mortise views of the left ankle. FINDINGS: No acute cortical disruption or malalignment. No subcutaneous emphysema. No lytic or blastic lesions. No gross joint lesion, anterior tibiotarsal bursa. No calcaneal spur. XR/XR ankle LT min 3V IMPRESSION: Normal x-ray, left ankle. Electronically signed by: Kashmir Quiroz MD 05/25/2025 11:14 AM EDT
== END 2025-05-25 10:42 | disposition home or self-care (01) ==
LOC: HO.XRAY 10:41
PROVIDERS: PCP Family Medicine; Visit Provider Family Medicine
DX: M25.572 Pain in left ankle and joints of left foot (principal)
CPT/HCPCS: 73610

== ENCOUNTER → 2025-05-25 10:45 | Outpatient (BNV) | payer OTHER, SELFPAY | PROVIDERS: PCP Family Medicine; Visit Provider Radiology Diagnostic Radiology | DX: M25.572 Pain in left ankle and joints of left foot (principal) | CPT/HCPCS: 73610 ==

== ENCOUNTER → 2025-06-20 09:33 | Outpatient (REF) | payer OTHER, SELFPAY ==
--- OUTSIDE RECORDS SUMMARY | 2020-08-07 11:10 | XMS_ITS | Continuity of Care Document ---
Author Organization [facility] Address [address] [place] [address] Phone Care Team Providers Care Bass Guitar Teacher Name Role Phone Toribio Raya MD Unavailable Unavailable Allergies, Adverse Reactions, Alerts Substance Reaction Status Criticality No Known Allergies Active No Inform ation Medications Medication Instructions Dosage Effective Dates (start - stop) Status Comments erythromycin 5 mg/gram (0.5 %) eye ointment apply (1CM) a small amount onto incision sites [facility] - Active atorvastatin 20 mg tablet take [...] Diagnoses Date Provider Providers Copied on Encounter [facility], [address] [place] [address], [id number], [place] tel:[phone] DON Hackett post op examination (chief complaint) Basal cell carcinoma of skin of right lower eyelid, including canthusEctropio n of lt lower eyelidEctropion of right lower eyelid 0 Dorota Rooney. [address] [facility], [place], [place], [id number] , [place]. tel:[phone] Specialist : Elena Card MD, [facility] [address], [place], [address]. tel:[phone] erring Provider: Axelpapiangeline [facility] [address] [place], [place] [address], [place], [address]. tel:[phone] [facility], [address] [place] [address], [id number], [place] tel:[phone] [facility] Basal cell carcinoma skin/ right lower eyelid, inc canthus 0 Dorota Rooney. [address], [place], [place], [id number] , [place]. tel:[phone] Referring Provider: Axelpapiangeline Tahmina [facility] [address], [place], [address]. tel:[phone] [facility], [address] [place] [address], [id number], [place] tel:[phone] DON Hackett post op examination (chief complaint) Unspecified ectropion of right lower eyelidUnspecifi ed ectropion of left lower eyelidBasal cell carcinoma skin/ right lower eyelid, inc canthus Oct-0 0 Dorota Rooney. [address] , [place], [place], [id number] , [place]. tel:[phone] Specialist : Elena Card MD, [facility] [address] [facility], [place], [address]. tel:[phone] cialist: Elena Card MD, [facility] [address] [facility], [place], [address]. tel:[phone] erring Provider: Shira Martel [place] [address], [place], [address]. tel:[phone] [facility], [address] [place] [address], [id number], [place] tel:[phone] DON Hackett Unspecified ectropion of right lower eyelidUnspecifi ed ectropion of left lower eyelidOther benign neoplasm of skin of right lower eyelid, including canthus May-2 0 Dorota Rooney. [address] [facility], [place], [place], [id number] , [place]. tel:[phone] Referring Provider: Shira Martel [place] [address], [place], [address]. tel:[phone] [facility], [address] [place] [address], [id number], [place] tel:[phone] DON Hackett lid evaluation (chief complaint) Unspecified ectropion of left lower eyelidUnspecifi ed ectropion of right lower eyelid Apr- 0 Dorota Rooney. [address] , [place], [place], [id number] , [place]. tel:[phone] Referring Provider: [place] [address], [place], [address]. tel:[phone] [facility], [address] [place] [address], [id number], [place] tel:[phone] DON Hackett No Information 0 Lukas Rooney. [address] [facility], [place], [place], [id number] , [place]. tel:[phone] [facility], [address] [place] [address], [id number], [place] tel:[phone] DON Hackett post op examination (chief complaint) Presence of intraocular lens 9 Dali De Los Santos. [address] [place] [address], [id number] , [place]. tel:[phone] Referring Provider: [place] [address], [place], [address]. tel:[phone] [facility], [address] [place] [address], [id number], [place] tel:[phone] DON Hackett post op examination (chief complaint) Pseudophakia 9 Dali De Los Santos. [address] [place] [address], [id number] , [place]. [phone] Referring Provider: [place] [address], [place], [address]. tel:[phone] [facility], [address] [place] [address], [id number], [place] tel:[phone] [facility] Age-related nuclear cataract, left eye Jun- 9 Dali De Los Santos. [address] [place] [address], [id number] , [place]. tel:[phone] Referring Provider: [place] [address], [place], [address]. tel:[phone] [facility], [address] [place] [address], [id number], [place] tel:[phone] [facility] [address] post op examination (chief complaint) Pseudophakia Oct-0 8-201 9 Dali De Los Santos. [address] [facility], [place], [place], [id number] , [place]. tel:[phone] Referring Provider: Shira Martel [place] [address], [place], [address]. tel:[phone] [facility], [address] [place] [address], [id number], [place] tel:[phone] DON Hackett post op examination (chief complaint) Pseudophakia Oct-0 1-201 9 Dali De Los Santos. [address] [place], [place], [id number] , [place]. [phone] Referring Provider: [place] [address], [place], [address]. tel:[phone] [facility], [address] [place] [address], [id number], [place] tel:[phone] DON Hackett post op examination (chief complaint) PseudophakiaAge -related nuclear cataract, left eye Sep-2 4-201 9 Dali De Los Santos. [address] [place], [place], [id number] , [place]. tel:[phone] Referring Provider: Shira Martel [facility] [address], [place], [address]. tel:[phone] [facility], [address] [place] [address], [id number], [place] tel:[phone] [facility] Age-related nuclear cataract, right eye Sep-2 3-201 9 Dali De Los Santos. [address] [place], [place], [id number] , [place]. tel:[phone] Referring Provider: Shira LAUREN, [facility] [address], [place], [address]. tel:[phone] [facility], [address] [place] [address], [id number], [place] tel:[phone] DON Hackett repeat IOL/lens discussion (chief complaint) Age-related nuclear cataract, bilateral May- 9 Dali De Los Santos. [address] [place], [id number] , [place]. [phone] Referring Provider: Shira LAUREN, [facility] [place] [address], [place], [address]. tel:[phone] [facility], [address] [place] [address], [id number], [place] tel:[phone] DON Hackett repeat IOL/lens discussion (chief complaint) Age-related nuclear cataract, bilateral Sep-0 9 Dali Morrisi. [address] [place], [place], [id number] , [place]. tel:[phone] Referring Provider: Shira LAUREN, [place] [address], [place], [address]. tel:[phone] [facility], [address] [place] [address], [id number], [place] tel:[phone] DON Hackett cataract evaluation (chief complaint) Age-related nuclear cataract, bilateralAge-re lated nuclear cataract, left eyeAge-related nuclear cataract, right eyeGlaucoma Suspect, both eyes, low risk Apr- 9 Dali De Los Santos. [address] [place], [place], [id number] , [place]. tel:[phone] Referring Provider: Shira LAUREN, [facility] [address], [place], [address]. tel:[phone] [facility], [address] [place] [address], [place], [place], [id number], tel:[phone] DON Hackett No Information 9 Dali De Los Santos. [address] [place] [address], [place], [place], [id number] , . tel:[phone] Referring Provider: [facility] [address] [facility] [address], [place], [address]. tel:[phone] Family History Family Member Type Diagnosis Age At Onset No Information Payers Payer name Insurance type Covered republican ID Randy mann(s) Jaytmaryse CI [id number] Social History Type Description Quantity Date Captured [...] to Age-related nuclear cataract, bilateral Impression/Plan - Th e patient is best classified at the present time as glaucoma suspect by virtue of his history and findings on examination. Elevated IOP's are likely a correlate of his supranormal CCT's. We had an excellent discussion regarding his status, including the importance and purpose of monitoring. He will continue monitoring with Dr. Martel. Related to Glaucoma Suspect, both eyes, low risk Follow up - Return i n next [...] weeks. Related to Age-related nuclear cataract, bilateral Assessments Type Assessment Date assessment Basal cell [...]
--- NOTE | 2025-06-20 09:35 | CA_ITS ---
Transthoracic Echocardiogram Patient (Last, First, Middle): Morgan Enrique, Gender: M Date of : 1960 Age: 64 Procedure Date: 06/20/2025 Procedure Type: Transthoracic Echocardiogram Location: OP Height: 182.88 cm Weight: 112.49 kg BSA: 2.33 m2 Heart Rate: bpm BP: 125 / 66 mmHg Acute Care Clinical Nurse Specialist: STACI Referring MD: Scotty Sloan MD Symptoms: I77.810 - Thoracic aortic ectasia Study Quality: Fair Conclusions: - 1. Normal LV ejection fraction of 65-70% with impaired relaxation filling pattern 2. Calcific aortic and mitral valve changes noted with early mild aortic stenosis 3. Mildly dilated ascending aorta at 4.3 cm 4. No gross pericardial effusion 5. Normal RV systolic pressure Findings Left Ventricle Normal left ventricular size, thickness, and systolic function. The visually estimated ejection fraction is between 65-70%. Regional wall motion abnormalities can not be excluded due to suboptimal endocardial definition. Spectral Doppler is indicative of an impaired relaxation filling pattern. Right Ventricle The right ventricle was not well visualized. Atria The left atrium was not well visualized. Interatrial shunt cannot be excluded. The right atrium was not well visualized. Aortic Valve There is moderate calcification of the aortic valve. There is moderate thickening of the aortic valve. There is no aortic valve regurgitation. Mitral Valve There is mild anterior and posterior mitral leaflet thickening. There is mild mitral annular calcification. There is trace mitral valve regurgitation. There is no mitral valve stenosis. Pulmonic Valve The pulmonic valve was not well visualized. Tricuspid Valve Likely normal tricuspid valve structure and function. There is trace tricuspid valve regurgitation. The right ventricular systolic pressure is normal. The right ventricular systolic pressure is 24 mmHg. Normal right atrial pressure. There is no evidence of pulmonary hypertension. Great Vessels The pulmonary artery was not well visualized. There is mild dilatation of the ascending aorta measuring 4.30 cm. Small plaque is seen in the sino tubular ridge. Venous The inferior vena cava is normal in size and collapses greater than 50% with inspiration. Pericardium/Pleural There is no evidence of pericardial effusion. Prior Study Comparison No significant change compared to prior study dated: 06/08/2024. Measurements 2D Linear Measurements IVSd: 0.80 0.6-0.9/0.6-1.0 cm LVIDd: 4.81 3.9-5.3/4.2-5.9 cm LVIDd Index: 2.06 2.4-3.2/2.2-3.1 cm/m2 LVIDs: 3.08 2.0-3.6 cm LVPWd: 0.91 0.7-1.1 cm LA Diam: 4.20 2.7-3.8/3.0-4.0 cm LAIDs Index: 1.80 1.5-2.3 cm/m2 LV Mass: 173.05 67-162/88-224 g LV Mass Index: 74.27 43-95/49-115 g/m2 LVOT Diam: 2.20 3.0+(-)1.3 cm 2D Systolic Function EF 4C: 63.90 >55% EF 2C: 69.80 >55% EF BiP: 67.40 >55% Mitral Valve MV Pk E: 0.86 MV PK A: 0.77 MV Decel Time: 187.00 E/A: 1.10 E'Lateral: 8.92 E'Medial: 6.96 E/E' Med: 12.30 E/E' Lat: 9.60 PHT: 55.00 MVA PHT: 4.00 Decel Nelson: 4.59 Aortic Valve AoV Pk Abhay: 1.91 AoV Mn Abhay: 1.35 AoV VTI: 0.40 AoV Pk Grad: 15.00 Aov Mn Grad: 8.00 DIONICIO Cont.VTI: 2.18 LVOT LVOT Pk Abhay: 1.03 LVOT Mn Abhay: 0.69 LVOT VTI: 0.23 LVOT Pk Grad: 4.00 LVOT Mn Grad: 2.00 LVOT Diam: 2.20 LVOT Area: 3.80 Diastolic Function MV Pk E: 0.86 MV Pk A: 0.77 E/A: 1.10 E'Medial: 6.96 E/E' Med: 12.30 E' Laterial: 8.92 E/E' Lat: 9.60 Tricuspid Valve TR Pk Abhay: 2.31 TR Pk Grad: 21.00 RA Press: 3.00 RVSP: 24.00 Great Vessels Aorta Sinus of Valsalva: 4.68 2.0-3.[address] Ridge: 4.30 1.7-3.4 cm Ao Asc: 4.30 2.1-3.4 cm Ao Arch: 3.80 Updated in Other Vendor System with Status of Final Carrillo Palmer MD electronically signed on 06/20/2025 5:00:59 PM with status of Final
== END ==
LOC: HO.CARD 09:33
PROVIDERS: PCP Family Medicine; Visit Provider Internal Medicine
DX: I77.810 Thoracic aortic ectasia (principal)
CPT/HCPCS: 93306

== ENCOUNTER → 2025-06-20 09:35 | Outpatient (BNV) | payer OTHER, SELFPAY | PROVIDERS: PCP Family Medicine; Visit Provider Internal Medicine Cardiovascular Disease | DX: I35.0 Nonrheumatic aortic (valve) stenosis (principal); I34.81 Nonrheumatic mitral (valve) annulus calcification; I35.8 Other nonrheumatic aortic valve disorders | CPT/HCPCS: 93306 ==

== ENCOUNTER 2025-06-21 08:40 | Outpatient (REF) | payer OTHER, SELFPAY ==
--- OUTSIDE RECORDS SUMMARY | 2020-08-07 11:10 | XMS_ITS | Continuity of Care Document ---
Author Organization [email or web address] Address [address] [place] [address] Phone Care Team Providers Care Medicare Sales Executive Name Role Phone Toribio Raya MD Unavailable Unavailable Allergies, Adverse Reactions, Alerts Substance Reaction Status Criticality No Known Allergies Active No Inform ation Medications Medication Instructions Dosage Effective Dates (start - stop) Status Comments erythromycin 5 mg/gram (0.5 %) eye ointment apply (1CM) a small amount onto incision sites [facility] - Active atorvastatin 20 mg tablet [...] Diagnoses Date Provider Providers Copied on Encounter [facility], [address] [place] [address], [id number], [place] tel:[phone] DON Hackett post op examination (chief complaint) Basal cell carcinoma of skin of right lower eyelid, including canthusEctropio n of lt lower eyelidEctropion of right lower eyelid 0 Dorota Rooney. [address] [facility], [place], [place], [id number] , [place]. tel:[phone] Specialist : Elena Card MD, [facility] [address], [place], [address]. tel:[phone] erring Provider: Axelpapiangeline Tahmina [facility] [address] [place], [place] [address], [place], [address]. tel:[phone] [facility], [address] [place] [address], [id number], [place] tel:[phone] [facility] Basal cell carcinoma skin/ right lower eyelid, inc canthus 0 Dorota Rooney. [address], [place], [place], [id number] , [place]. tel:[phone] Referring Provider: Axelpapiangeline Tahmina [facility] [address], [place], [address]. tel:[phone] [facility], [address] [place] [address], [id number], [place] tel:[phone] DON Hackett post op examination (chief complaint) Unspecified ectropion of right lower eyelidUnspecifi ed ectropion of left lower eyelidBasal cell carcinoma skin/ right lower eyelid, inc canthus Oct-0 0 Dorota Rooney. [address] , [place], [place], [id number] , [place]. tel:[phone] Specialist : Elena Card MD, [facility] [address] [facility], [place], [address]. tel:[phone] cialist: Elena Card MD, [facility] [address] [facility], [place], [address]. tel:[phone] erring Provider: Shira Martel [place] [address], [place], [address]. tel:[phone] [facility], [address] [place] [address], [id number], [place] tel:[phone] DON Hackett Unspecified ectropion of right lower eyelidUnspecifi ed ectropion of left lower eyelidOther benign neoplasm of skin of right lower eyelid, including canthus May-2 0 Dorota Rooney. [address] [facility], [place], [place], [id number] , [place]. tel:[phone] Referring Provider: Shira Martel [place] [address], [place], [address]. tel:[phone] [facility], [address] [place] [address], [id number], [place] tel:[phone] DON Hackett lid evaluation (chief complaint) Unspecified ectropion of left lower eyelidUnspecifi ed ectropion of right lower eyelid Apr- 0 Dorota Rooney. [address] , [place], [place], [id number] , [place]. tel:[phone] Referring Provider: [place] [address], [place], [address]. tel:[phone] [facility], [address] [place] [address], [id number], [place] tel:[phone] DON Hackett No Information 0 Lukas Rooney. [address] [facility], [place], [place], [id number] , [place]. tel:[phone] [facility], [address] [place] [address], [id number], [place] tel:[phone] DON Hackett post op examination (chief complaint) Presence of intraocular lens 9 Dali De Los Santos. [address] [place] [address], [id number] , [place]. tel:[phone] Referring Provider: [place] [address], [place], [address]. tel:[phone] [facility], [address] [place] [address], [id number], [place] tel:[phone] DON Hackett post op examination (chief complaint) Pseudophakia 9 Dali De Los Santos. [address] [place] [address], [id number] , [place]. [phone] Referring Provider: [place] [address], [place], [address]. tel:[phone] [facility], [address] [place] [address], [id number], [place] tel:[phone] [facility] Age-related nuclear cataract, left eye Jun- 9 Dali De Los Santos. [address] [place] [address], [id number] , [place]. tel:[phone] Referring Provider: [place] [address], [place], [address]. tel:[phone] [facility], [address] [place] [address], [id number], [place] tel:[phone] [facility] [address] post op examination (chief complaint) Pseudophakia Oct-0 8-201 9 Dali De Los Santos. [address] [facility], [place], [place], [id number] , [place]. tel:[phone] Referring Provider: Shira Martel [place] [address], [place], [address]. tel:[phone] [facility], [address] [place] [address], [id number], [place] tel:[phone] DON Hackett post op examination (chief complaint) Pseudophakia Oct-0 1-201 9 Dali De Los Santos. [address] [place], [place], [id number] , [place]. [phone] Referring Provider: [place] [address], [place], [address]. tel:[phone] [facility], [address] [place] [address], [id number], [place] tel:[phone] DON Hackett post op examination (chief complaint) PseudophakiaAge -related nuclear cataract, left eye Sep-2 4-201 9 Dali De Los Santos. [address] [place], [place], [id number] , [place]. tel:[phone] Referring Provider: Shira Martel [facility] [address], [place], [address]. tel:[phone] [facility], [address] [place] [address], [id number], [place] tel:[phone] [facility] Age-related nuclear cataract, right eye Sep-2 3-201 9 Dali De Los Santos. [address] [place], [place], [id number] , [place]. tel:[phone] Referring Provider: Shira LAUREN, [facility] [address], [place], [address]. tel:[phone] [facility], [address] [place] [address], [id number], [place] tel:[phone] DON Hackett repeat IOL/lens discussion (chief complaint) Age-related nuclear cataract, bilateral May- 9 Dali De Los Santos. [address] [place], [id number] , [place]. [phone] Referring Provider: Shira LAUREN, [facility] [place] [address], [place], [address]. tel:[phone] [facility], [address] [place] [address], [id number], [place] tel:[phone] DON Hackett repeat IOL/lens discussion (chief complaint) Age-related nuclear cataract, bilateral Sep-0 9 Dali Morrisi. [address] [place], [place], [id number] , [place]. tel:[phone] Referring Provider: Shira LAUREN, [place] [address], [place], [address]. tel:[phone] [facility], [address] [place] [address], [id number], [place] tel:[phone] DON Hackett cataract evaluation (chief complaint) Age-related nuclear cataract, bilateralAge-re lated nuclear cataract, left eyeAge-related nuclear cataract, right eyeGlaucoma Suspect, both eyes, low risk Apr- 9 Dali De Los Santos. [address] [place], [place], [id number] , [place]. tel:[phone] Referring Provider: Shira LAUREN, [facility] [address], [place], [address]. tel:[phone] [facility], [address] [place] [address], [place], [place], [id number], tel:[phone] DON Hackett No Information 9 Dali De Los Santos. [address] [place] [address], [place], [place], [id number] , . tel:[phone] Referring [facility]: [facility] [address] [facility] [address], [place], [address]. tel:[phone] Family History Family Member Type Diagnosis Age At Onset No Information Payers Payer name Insurance type Covered libertarian ID Randy mann(s) Jaytmaryse CI [id number] Social History Type Description Quantity Date Captured [...] left eye Impression/Plan Related to Pseud ophakia Follow up - Proceed with cataract surgery [...] surgery. Related to Age-related nuclear cataract, bilateral Impression/Plan - Re peat biometry performed today [...]
[2025-06-21 11:38] LABS: Hemoglobin A1C 141.7070 umol/L
== END 2025-06-21 08:41 | disposition home or self-care (01) ==
LOC: HO.WFDLDS 08:40
PROVIDERS: Visit Provider Family Medicine
DX: R73.01 Impaired fasting glucose (principal)
CPT/HCPCS: 36415; 83036

== ENCOUNTER 2025-07-08 11:00 | Outpatient (RCR) | payer OTHER, SELFPAY ==
--- NOTE | 2025-06-09 11:32 | MHC.PT.EP ---
[facility] [place] Office [place] Office [place] Office [address] Perez Linares [address] [phone] F: [phone] F: [phone] F: [phone] F: [phone] Physical Therapy Plan of Care Date of Evaluation: 06/09/25 Date of Surgery: n/a Diagnosis: L shoulder pain Assessment: Patient is a 64 year old male presenting to PT with complaints of pain in his L shoulder. Pt reports onset of pain began early 2024 due to insidious onset. He presents today with impairments in pain, shoulder ROM, shoulder strength, posture. Pt's current occupation is retired, with baseline physical activities including reaching, lifting, ADLs, household duties. Pt expresses halfway goal of reducing pain, and is motivated to work towards this in PT. Clinical presentation today is most consistent with signs and sx associated with L shoulder pain and pt will benefit from skilled PT 2 week x 4 weeks to address the following problems and impairments noted upon evaluation: pain, shoulder ROM, shoulder strength, posture. These problems limit the patient with the following functional activities: reaching, lifting, ADLs, household duties. The prescribed treatment plan of care is medically necessary. Co-morbidities of none were identified and taken into considerations of plan of care. Pt was educated on HEP, role of PT, prognosis, POC. Frequency and Duration: The patient will be seen 2 x week x 4 weeks Short Term Goals: Pt will demonstrate improved L shoulder ROM by 20 degrees in 2 weeks. Pt will demonstrate improved L shoulder MMT strength by 1/3 grade in 2 weeks. Snf Goals: Pt will demonstrate improved SPADI score by 9 points in 4 weeks for improved functional mobility. Pt will demonstrate improved shoulder ROM to equal B in 4 weeks for improved ability to reach and complete ADLs. Pt will demonstrate ability to complete all household and yard duties with min to no pain in 4 weeks for return to PLOF. Treatment Plan: Modalities to reduce pain, spasms and effusion. Manual therapy to restore motion and function. Therapeutic exercise to improve strength and flexibility. Neuromuscular re-education for posture and balance. Therapeutic activities to return to functional activities of daily living. Electronically signed by: Arabella Cortez, PT, DPT, ATC Please sign and return to therapist. Thank you for your referral.
--- NOTE | 2025-07-08 11:39 | MHC.PT.DC ---
[facility] [place] Office [place] Office [place] Office [address] Perez Linares [address] [phone] F: [phone] F: [phone] F: [phone] F: [phone] Physical Therapy Discharge Report Diagnosis: L shoulder pain Date of Surgery: n/a Date of Evaluation: 06/09/25 Date of Discharge: 07/08/25 Treatments to Date: 9 Cancellations to Date: 0 No Shows to Date: 0 Discharge Status: Achieved Goals Improved Function Independent with HEP Discharge Summary: 07/08/2025: Pt has made good progress since start of care. He is demonstrating improved ROM and strength. IR is still difficult and limited causing him ongoing trouble putting on and off a jacket. Overall he is happy with his progress. We have maximized skilled PT and he is appropriate to d/c. He is independent with his HEP and was educated on importance of continuing with this to gain last bit of ROM. He is in agreement with d/c today. Electronically signed by: Arabella Cortez, PT, DPT, ATC Please sign and return to therapist. Thank you for your referral.
== END 2025-07-08 11:39 | disposition home or self-care (01) ==
LOC: HO.PTCHIC 11:00
PROVIDERS: PCP Family Medicine; Visit Provider Family Medicine
DX: M25.512 Pain in left shoulder (principal)
CPT/HCPCS: 97110; 97140; 97161

== ENCOUNTER 2025-07-12 11:57 | Outpatient (AMB) | payer OTHER, SELFPAY ==
[2025-07-12 12:34] VITALS: BP 122/68; PULSE 72; BMI 33.8
--- NOTE | 2025-07-12 12:34 | A.OFFVIS_ITS ---
Vital Signs 07/12/25 12:34 Height 6 ft Weight 249 lb 1.957 oz BMI 33.8 BP 122/68 Blood Pressure Location Lt brachial Position Sitting Pulse 72 Pulse Source Pulse Oximeter Intake Visit Reasons: 6 mth f/up Allergies No Known Allergies Allergy (Verified 05/12/25 08:52) Medication List - Last Reconciled 07/12/25 by Scotty Sloan MD amlodipine-benazepril 10-20 mg 1 cap PO DAILY 90 days atorvastatin 10 mg PO DAILY 90 days fluticasone propionate 50 mcg/actuation (Flonase Allergy Relief) 1 spray intranasal Q12H 30 days sildenafil 50 mg PO DAILY PRN 30 days spironolactone 25 mg PO DAILY 90 days HPI Comments Details: Morgan returns for follow-up. In the past, he was seen regarding an abnormal echocardiogram. That had reported aortic and mitral valve calcifications as well as ascending aortic dilatation. Patient himself does not have any cardiac history. No known coronary disease or myocardial infarction or cardiomyopathy or in fact any other cardiac issues. Within limits of his activity, he does not have any chest pain or any cardiac symptoms whatsoever. Active with no limitations. He is overweight and he states he has been this way for a long time. We had ordered a coronary CTA but there was not approved. He rather underwent exercise stress test. Since last seen, he states he feels good. No symptoms like angina or shortness of breath or in fact any other symptoms of concern. [facility] Medical History Mild dilation of ascending aorta High blood pressure Surgical History History of thoracic surgery Family History Father Diabetes CAD (coronary artery disease) Mother Stroke High blood pressure CAD (coronary artery disease) Social History Housing: House Alcohol intake: current Alcohol intake frequency: holidays/special occasions only Patient Tobacco Use Status: Never used Tobacco e-Cigarette/Vaping Use: Never Used Second Hand Smoke Exposure: No service: No Current occupational status: retired Current occupational exposures/hazards: No Cognitive needs: No Hearing needs: No Vision needs: No Review of Systems Const Denies weakness ENT Denies dizziness Card Denies chest pain, Denies chest pain with activity, Denies syncope, Denies rapid heart rate, Denies pedal edema, Denies edema, Denies leg edema, Denies lightheadedness, Denies palpitations, Denies dyspnea, Denies dyspnea on exertion and Denies orthopnea Resp Denies cough, Denies dyspnea and Denies dyspnea on exertion GI Denies hematochezia and Denies change in stool character Musc Denies abnormal gait, Denies muscle cramps, Denies muscle weakness, Denies numbness, Denies radiating pain into limb and Denies tingling Neuro Denies abnormal gait, Denies dizziness, Denies syncope, Denies numbness, Denies tingling and Denies weakness Endo Denies palpitations Physical Exam Vital Signs: Last Vital Signs Pulse 72 07/12/25 12:34 BP 122/68 07/12/25 12:34 BMI result Body Mass Index 33.8 Const General: comfortable and no acute distress Orientation/consciousness: patient oriented x3 HEENT Other: Unremarkable Head: Yes normal to inspection Neck Neck: Yes normal visual inspection Chest Chest palpation & inspection: normal inspection of the chest Resp Auscultation: clear to auscultation bilaterally Cardio Palpation: normal PMI Heart sounds: S1 normal heart sound present, S2 normal heart sound present, no gallops, Murmur heart sound present systolic I/ and no rubs GI Palpation (GI): Soft to palpation Back/Spine/Pelvis Other: unremarkable Skin General skin exam: no rashes or lesions noted Neuro General: patient oriented x3 Extrem General: Yes normal to inspection Psych Mental Status: mental status grossly normal Assessment & Plan Assessment & Plan (1) Aortic valve calcification: Code(s): I35.9 - Nonrheumatic aortic valve disorder, unspecified Category: Medical (2) Mitral annular calcification: Code(s): I34.81 - Nonrheumatic mitral (valve) annulus calcification Category: Medical (3) Mild dilation of ascending aorta: Code(s): I77.810 - Thoracic aortic ectasia Category: Medical (4) Essential hypertension: Code(s): I10 - Essential (primary) hypertension Category: Medical (5) Hyperlipidemia: Code(s): E78.5 - Hyperlipidemia, unspecified Category: Medical Plan In the most recent echocardiogram, LVEF is 65-70%. Aortic and mitral calcification but there was no significant valvular dysfunction. Ascending aortic size 4.3 cm. In the previous echocardiogram, ascending aortic size was again 4.3 cm. In the stress test, he was able to do 7 METS on Gerry protocol and reached 91% of max predicted heart rate. No chest discomfort. Frequent PACs/PVCs. No EKG evidence of ischemia. With regard to the valvular calcification, we will monitor on echocardiogram. With regard to the ascending aortic size, again we will need to follow on echocardiogram. Recheck in one year. Otherwise, mainly risk factor modification. We discussed about weight loss again today and hopefully can lose some. Optimal management of blood pressure and lipids. Again discussed about sleep study but he would like to hold off on that. Follow up in one year. In the interim, he will call with concerns. Discussion Notes During the consultation, I discussed with the patient the importance of maintaining blood pressure control to prevent further expansion of the aortic aneurysm. We also talked about the benefits of weight loss in reducing stress on the aneurysm. The patient was informed that the aneurysm size is currently stabl e and that no immediate changes to the management plan are necessary. Follow-up is scheduled for one year, with instructions to contact the office if any issues arise before then. Patient was informed and verbally consented to the use of an ambient scribe for clinic note documentation during this visit. Patient Instructions: - Monitor your blood pressure regularly and keep it under control. - Aim to lose weight. - Follow up in one year or sooner if any new symptoms develop. Coding Level of Care Code Est Pt Level 4 (09130) Complex EM visit Add On G2211 Diagnoses Aortic valve calcification I35.9 Mitral annular calcification I34.81 Mild dilation of ascending aorta I77.810 Essential hypertension I10 Hyperlipidemia E78.5
== END 2025-07-12 12:46 | disposition home or self-care (01) ==
LOC: HO.HCS 11:58
PROVIDERS: PCP Family Medicine; Visit Provider Internal Medicine
DX: I35.9 Nonrheumatic aortic valve disorder, unspecified (principal); I34.81 Nonrheumatic mitral (valve) annulus calcification; I77.810 Thoracic aortic ectasia; I10 Essential (primary) hypertension; E78.5 Hyperlipidemia, unspecified
CPT/HCPCS: 99214

== ENCOUNTER → 2025-07-12 11:57 | Outpatient (BNVA) | payer OTHER, SELFPAY | PROVIDERS: PCP Family Medicine; Visit Provider Internal Medicine | DX: I10 Essential (primary) hypertension (principal); I77.810 Thoracic aortic ectasia; I34.81 Nonrheumatic mitral (valve) annulus calcification; I35.9 Nonrheumatic aortic valve disorder, unspecified; E78.5 Hyperlipidemia, unspecified | CPT/HCPCS: 99212 ==

== ENCOUNTER 2025-07-27 10:07 | Outpatient (AMB) | payer OTHER, SELFPAY ==
--- NOTE | 2025-07-27 10:48 | A.OFFPC_ITS ---
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 A1c drawn 06/21/25. 5.7% - prediabetes. Pt had complaints of L ankle pain. Xray was normal. Reports pain much improved. [facility] Medical History Mild dilation of ascending aorta High blood pressure Surgical History History of thoracic surgery Family History Father Diabetes CAD (coronary artery disease) Mother Stroke High blood pressure CAD (coronary artery disease) Social History Housing: House Alcohol intake: current Alcohol intake frequency: holidays/special occasions only Patient Tobacco Use Status: Never used Tobacco e-Cigarette/Vaping Use: Never Used Second Hand Smoke Exposure: No service: No Current occupational status: retired Current occupational exposures/hazards: No Cognitive needs: No Hearing needs: No Vision needs: No Questionnaire Thrive Questionnaire Date Thrive assessed: 05/05/25 I am a: Patient What is your living situation today?: I have a steady place to live Within the past 12 months, did the food you bought not last and you didn't have the money to get more?: Never true Within the past 12 months, did you worry whether your food would run out before you got money to buy more?: Never true Do you have trouble paying for medicines?: No Do you have trouble getting transportation to medical appointments?: No Do you have trouble paying your heating and electricity bill?: No Do you have trouble taking care of your child, family member or friend?: No Do you have trouble with day-to-day activities such as bathing, preparing meals, shopping, managing finances, etc.?: No Are you currently unemployed and looking for a job?: No Are you interested in more education?: No Please select the resources that you would like help with: None Currently or been in a relationship where the following occur: No concerns reported THRIVE Score: 0 RONALD-7 AMB Questionnaire RONALD-7 Date RONALD - 7 assessed: 05/12/25 Source: Developed by Drs. John Paul Nix, Lisa Marr, Jeff Briceno and colleagues, with an educational krista from [employer]. Review of Systems Const Denies chills, Denies fatigue, Denies fever(s), Denies headache(s) and Denies we akness ENT Denies dizziness and Denies headache(s) Card Denies dyspnea Resp Denies cough, Denies dyspnea, Denies wheezing and Denies other (shortness of breath) Musc Denies numbness and Denies tingling Neuro Denies dizziness, Denies headache(s), Denies numbness, Denies tingling and Denies weakness Psych Denies anxiety and Denies depression Endo Denies fatigue Aller/Immun Denies wheezing Physical exam (Primary Care) Vital Signs: Last Vital Signs Temp 98.4 F 07/27/25 10:51 Pulse 68 07/27/25 10:51 Resp 16 07/27/25 10:51 BP 130/80 07/27/25 10:51 Pulse Ox 97 07/27/25 10:51 Oxygen Delivery Method Room Air 07/27/25 10:51 BMI result Body Mass Index 34.2 Tobacco/Smoking Status: Tobacco use Status Tobacco use date assessed 05/12/25 07/27/25 10:50 Patient Tobacco Use Status Never used Tobacco 07/27/25 10:50 e-Cigarette/Vaping Use Never Used 07/27/25 10:50 Thrive Assessment: Date of Thrive Assessment Date Thrive assessed 05/05/25 07/27/25 10:50 Currently or been in a relationship where the following occur: No concerns reported Const General: well developed; No acute distress Nutritional Appearance: well nourished Orientation/consciousness: patient oriented x3 HENMT Head: Yes normocephalic and Yes atraumatic Eyes General: appearance normal, both eyes and all related structures Pupils: Equal, round and reactive pupils present EOM: EOMs intact bilaterally Resp Effort & Inspection: normal respiratory effort Neuro General: patient oriented x3 and gait normal Cranial nerves: Yes Equal, round and reactive pupils present Psych Affect: normal affect Coding Level of Care Code Est Pt Level 3 (38293) Diagnoses Pre-diabetes R73.03 Left ankle pain M25.572 Essential hypertension I10 Left shoulder pain M25.512 Assessment & Plan Assessment & Plan (1) Pre-diabetes: Code(s): R73.03 - Prediabetes Category: Medical Plan: A1c improved from 5.8% to 5.7%. Still in pre diabetes range Continue to work at a diet lower in sugars and starches Encouraged weight loss (2) Left ankle pain: Code(s): M25.572 - Pain in left ankle and joints of left foot Category: Medical Plan: This has resolved X-ray was negative (3) Essential hypertension: Code(s): I10 - Essential (primary) hypertension Category: Medical Plan: Blood pressure is borderline at 130/80. History of aortic aneurysm and followed by Cardiology. Encouraged weight loss and diet low in salt/sodium Continue antihypertensive medications as prescribed Will continue to monitor (4) Left shoulder pain: Code(s): M25.512 - Pain in left shoulder Category: Medical Plan: Left shoulder range of motion is much improved and he notes that pain is minimal currently. Encouraged him to continue the exercises he learned in physical therapy He will let me know if this flares up or worsens; would refer to ortho at that point
[2025-07-27 10:51] VITALS: BP 130/80; PULSE 68; RESP 16; TEMP 36.9; O2SAT 97; BMI 34.2
== END 2025-07-27 11:25 | disposition home or self-care (01) ==
LOC: HO.HMCFM 10:08
PROVIDERS: PCP Family Medicine; Visit Provider Family Medicine
DX: R73.03 Prediabetes (principal); M25.572 Pain in left ankle and joints of left foot; I10 Essential (primary) hypertension; M25.512 Pain in left shoulder

== ENCOUNTER → 2025-07-27 10:07 | Outpatient (BNVA) | payer OTHER, SELFPAY | PROVIDERS: PCP Family Medicine; Visit Provider Family Medicine | DX: I10 Essential (primary) hypertension (principal); M25.572 Pain in left ankle and joints of left foot; R73.03 Prediabetes; M25.512 Pain in left shoulder | CPT/HCPCS: 99212 ==